=== PATIENT | female | born 1980 | race Caucasian/White ===

== ENCOUNTER 2020-09-28 10:30 | Outpatient (RCR) | payer BC, SELFPAY ==
--- NOTE | 2020-09-10 09:39 | PC.NURSE ---
Pt called TW a little after 9am in tears reporting that she is having technical difficulties and has been unable to access personal email in order to attend groups today. Pt expressed concern that she wouldn't be able to continue. TW assurred pt that this happens and informed her she could start on 09/13/20. Pt will work on computer issues over the weekend and agreed to a Sunday start.
--- NOTE | 2020-09-13 10:59 | PC.NURSE ---
Pt opened in treatment team.
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
--- NOTE | 2020-09-14 12:08 | PC.NURSE ---
Notified patient that she has a daily $20.00 co-pay per her insurance company and patient stated she will no longer be attending the program as a result. Gave patient information about medication assisted treatment for substance use and where she could receive assistance and pt stated angrily, in case you haven't heard I'm going to my PCP and getting Methadone for my pain! . Unable to recognize substance use issues. Did not want to further engage in further conversation. Patient recently came out of detox. Hx of using cocaine for the px 6 months daily and Heroin use daily for 2 years. PHP team is aware.
--- NOTE | 2020-09-15 10:56 | PC.NURSE ---
Pt called out today stating she has a migraine and will be in tomorrow
--- NOTE | 2020-09-15 13:25 | PC.NURSE ---
Patient stated to this junior technical writer yesterday that she would no longer be attending the program d/t the $20.00/day co-pay per insurance however told staff this morning that she would be attending and that she would be getting help from family regarding the co-pay. Patient however did not attend the program today as she told staff she had a migraine. Called patient this morning and left message for her to call me back to complete her admission assessment. Patient has not returned my phone call at present.
--- NOTE | 2020-09-16 09:57 | PC.NURSE ---
Per Staff Effie sent an email message calling out for the second time this morning d/t c/o migraine headache. Left message with patient to call me back yesterday to schedule a time to complete nursing assessment however patient has not called me back.
--- NOTE | 2020-09-16 15:58 | PC.NURSE ---
I called and left a message for pt. She called out today and yesterday with a migraine
--- NOTE | 2020-09-17 08:18 | PC.NURSE ---
I called and LM on pt's home phone, and on her cell phone. Asked her to pls call re: attendance and schedule.
--- NOTE | 2020-09-17 08:35 | PC.NURSE ---
Lm for Rosi Sorto at [facility] again, to refer to day tx
--- NOTE | 2020-09-17 11:52 | PC.ADMIT ---
Patient is a 40 year old female who self referred to the [facility] program on the advise of [facility] where patient was admitted for detox of heroin. Pt reports she went into detox on 08/31/20 and spent 6 days in treatment. She stated they wanted to refer her to a rehab facility afterwards however she declined d/t her dog being sick and stated she is afraid he is going to thus wants to be with him. Pt presents with depressed mood. She is alert and oriented x4. Denied SI. Reports anxiety and poor sleep. Stated she is here as, this is the next step after detox . Does not believe she has addiction issues and reports she was self medicating with heroin for pain issues as she lost her pain medication prescription. She stated she failed a drug test on January 12 and prescriber stopped the prescription. Pt did state that she talked with the nurse at her PCP's office and the plan is to start her on Methadone for pain. Pt reports that she is currently taking an old prescription of Morphine 15 mg tab daily that she found in her emergency pack for her neck pain. She reports she has 5 tabs left. She stated her doctor told her she can take it until she gets on the Methadone. Pt aware that we will be ordering drug screens while she is in the program and she was advised to take medications that are currently prescribed. Pt does not want referrals to medication assisted treatment for substance use at this time. In addition pt is overusing OTC Diphenhydramine 50 mg tabs stating she is taking 6 tabs at night for sleep. Advised patient to start taking the recommended dose. Medication education provided. Team is aware of above mentioned information including Taylor Stevenson APRN. Pt gave verbal permission to email her a copy of her safety plan and agrees to utilize if feeling unsafe.
[2020-09-17 12:21] VITALS: BMI 58.6
--- NOTE | 2020-09-17 14:11 | PC.NURSE ---
Attempted to call pt after a report that she became very angry in the third group because she was told she couldn't use marijuana while in the program. LM for pt to call back.
--- NOTE | 2020-09-21 15:36 | HO.PHPPROGNO ---
Subjective Subjective Date of Service: 09/22/20 Reason For Visit: F 33.2 F 14.20 F 11.20 Interim History: Effie reports she would like to continue Trazodone 50 mg HS as it helps with sleep. She discussed a.m. SE of hangover. Discussed dosage timing-hydration. Will meet with PCP today to discuss the possibility of Methadone. Will ask PCP to begin [facility] pain [place] referral. Medication Compliance: Yes Side effects from medications: Yes (a.m. sedation from Trazodone) Attending Groups: Yes Review of Systems Psychiatric: Reports anxiety and Reports depression Mental Status Exam Mental Status Exam Patient Orientation: Person, Place, Time and Situation Level of Consciousness: Awake, Appropriate and Alert Patient Behavior: Appropriate, Talkative and Cooperative Mood Description: Anxious Affect Description: Flat Patient Cognition Impaired: No Ability to Follow Directions: Excellent Speech Pattern: Clear, Appropriate and Spontaneous Speech Memory Description: Intact Hallucinations: None Delusions: Not Present Thought Process: Intact Thought Content: positive for Intact Depressive Symptoms: Increased Anxiety, Muscle Tension, Muscle Pain, Hopelessness, Unhappiness, Loss of Energy and Back Pain Judgement: Good Diagnostics Vital Signs (24Hr): Body Mass Index 58.6 Assessment & Plan Assessment & Plan (1) Major depressive disorder, recurrent severe without psychotic features: Status: Acute Code(s): F33.2 - Major depressive disorder, recurrent severe without psychotic features Assessment and Plan: -Continue Trazodone 50 mg HS -Pt finds etiology of depressive sx to be pain. She has asked PCP to consider Methadone, however PCP will refer pt to Suboxone Clinic. Pt to meet new PCP on 10/12/20. She is in process of referral to [facility] pain clinic (she is a former patient she reports) for alternative treatments. -At this time, she is not wanting further psychopharmacology treatment. Patient educated on: medication risk/benefits and therapeutic strategies Informed Consent: understands and further education needed Reason for contiued partial hosp. stay Substantial Risk for: inability to function and rapid decompensation Certification I certify that partial hospital treatment is medically necessary due to the symptoms and problems resulting from the patient's mental illness and the failure to treat the patient at the partial hospital level of care would likely result in the patient requiring inpatient psychiatric care which could not be prevented at a less intensive level of care. Greater than 50% of the session was spent on counseling and/or coordination of care Discharge Plan Discharge Attending provider: Arden Eddy Medications: Continued trazodone 50 mg tablet 50 mg PO BEDTIME Qty: 14 RF: 1
--- NOTE | 2020-09-27 16:43 | HO.PHPPROGNO ---
Subjective Subjective Date of Service: 09/28/20 Reason For Visit: F 33.2 F 14.20 F 11.20 Interim History: Continues to report pain. Will meet with Dr. Augustin to discuss Methadone Rx. Will also have PT and Physiatry. PCP has told pt she is not a Methadone candidate at [facility], but Suboxone potential working with Nelly GRAYSON with weekly contract, weekly appointments, pill counts, random POND. Discussed psychopharmacology with pt. Declines at this time, stating if she were to change her mind, she would return to her Wellbutrin/[place] combination as it was effective for 19 years. Encouraged pt to consider as it may assist with pain mgt as well via mood stabilization, antidepressant response. Medication Compliance: Yes Side effects from medications: No Attending Groups: Yes Review of Systems Constitutional: Reports body ache(s), Reports fatigue, Reports lethargy, Reports malaise and Reports weakness Musculoskeletal: Reports back pain, Reports myalgias, Reports arthralgias, Reports limited range of motion, Reports muscle cramps, Reports muscle weakness, Reports numbness, Reports stiffness and Reports tingling Reports numbness, Reports tingling and Reports weakness Psychiatric: Reports depression Endocrine: Reports fatigue Mental Status Exam Mental Status Exam Patient Orientation: Person, Place, Time and Situation Level of Consciousness: Awake, Appropriate and Alert Patient Behavior: Appropriate Mood Description: Withdrawn, Depressed and Apprehensive Affect Description: Withdrawn and Depressed Patient Cognition Impaired: No Ability to Follow Directions: Excellent Speech Pattern: Clear, Appropriate and Spontaneous Speech Memory Description: Intact Hallucinations: None Delusions: Not Present Thought Process: Intact and Goal Oriented Thought Content: positive for Intact Depressive Symptoms: Muscle Tension, Muscle Pain, Hopelessness, Unhappiness, Increased Fatigue, Loss of Energy and Back Pain Judgement: Good Diagnostics Vital Signs (24Hr): Body Mass Index 58.6 Assessment & Plan Assessment & Plan (1) Major depressive disorder, recurrent severe without psychotic features: Status: Acute Code(s): F33.2 - Major depressive disorder, recurrent severe without psychotic features Assessment and Plan: Effie is currently focused on pain mgt. We discussed returning to her previous regime as well a new trials. At this time she declines-she will consider a return to her previous regime of [place]/Wellbutrin, however wants to address pain initially. Certification I certify that partial hospital treatment is medically necessary due to the symptoms and problems resulting from the patient's mental illness and the failure to treat the patient at the partial hospital level of care would likely result in the patient requiring inpatient psychiatric care which could not be prevented at a less intensive level of care. Greater than 50% of the session was spent on counseling and/or coordination of care Discharge Plan Discharge Attending provider: Arden Eddy Medications: Continued trazodone 50 mg tablet 50 mg PO BEDTIME Qty: 14 RF: 1
--- NOTE | 2020-09-28 08:35 | PC.NURSE ---
At pt's request, I called and placed a referral for [facility] in [place]. [phone]. They said they will email me a checklist to send back, then give appts once filled out. I called and spoke to pt about this, and about her schedule. Pt said she will also look into psychology today because she might want a private practice therapist. I informed pt that it might be quite hard to get a private practice med provider is she chooses this route, as she said she is thinking about re-starting psych medications. She will discharge on 10/06, unless she decides to d/c earlier. She informed me of some new stressors, including her aunt having brain surgery and her mother getting increasingly forgetful. She said her mother has had a small aneurism, and she is worried her mother might also have a brain tumor.
== END 2020-09-28 23:55 | disposition left against medical advice (07) ==
LOC: HO.PHPA 10:30
PROVIDERS: Visit Provider Psychiatry & Neurology Psychiatry
DX: F33.2 Major depressive disorder, recurrent severe without psychotic features (principal); F14.20 Cocaine dependence, uncomplicated; F11.20 Opioid dependence, uncomplicated; Z79.899 Other long term (current) drug therapy
CPT/HCPCS: 90792; 90853; 99213

== ENCOUNTER 2021-08-19 08:15 | Outpatient (RCR) | payer BC, SELFPAY ==
[2021-08-15 12:57] VITALS: BMI 25.8
--- NOTE | 2021-08-15 13:43 | PC.ADMIT ---
Patient is a 41 year old female who was referred from [facility] as a step down from inpatient treatment. Patient was admitted from 07/26-08/03/21 after being assessed by [facility] d/t increase in depression and anxiety symptoms. Patient reported prior to hospitalization she attempted to overdose on heroin and also was thinking about using the exhaust from her car however patient stopped herself and went to crisis asking for help. Patient denied current SI. Patient has been struggling with substance use and reports history of neck pain with a history of 2 cervical spine surgeries. She reports being on prescription opiates for neck pain however was taken off the medication thus patient reports using heroin for her pain as a result. Patient reports she has been able to decrease heroin use however relapsed on Sunday. 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 Patient agreed to participate in online substance use groups in addition to PHP for more support in addition to agreeing to random drug screens. Patient also agreed to talk about the relapse in groups in order to get more support. Sent patient information via email on online substance use groups. Patient is alert and oriented x4. Calm and cooperative. At one point during the assessment patient stated she did not feel well and had to vomit. Patient left for a few minutes and came back. Stated she vomited however is not sure why. Patient denied any withdrawal sxs. Opened her window to get some fresh air and felt better afterwards. Patient denied SI however stated she has had some passive thoughts thinking things would be better if she was not here. Denied plan or intent. Asked who she could contact if she was feeling unsafe, she stated her whom she lives with or crisis. Medications reconciled with patient and patient's discharge paperwork from [facility]. Patient reports taking her medications as prescribed.
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
--- NOTE | 2021-08-18 10:21 | PC.NURSE ---
I called the client after she became upset in group and left. 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 She feels too emotionally uncomfortable to return to the group. She states that she will be safe and will sleep and be back tomorrow. I told her if she changed her mind she can join the second group at 1030 if not we will see her tomorrow.
--- NOTE | 2021-08-22 09:26 | PC.NURSE ---
I called the client this morning when she did attend community meeting. She states that she should withdraw from treatment because she relapsed on heroin Sunday. We talked about staying and working on this in the groups and if it is not enough
--- NOTE | 2021-08-22 09:39 | PC.NURSE ---
The client phoned again to state that she will not be continuing in PHP. She explains that she feels that she has alot of paperwork to figure out for work and just needs to focus on that. She completed and intake at [facility] and will have her first appointment with the prescriber tomorrow and is waiting for the therapy appointment .
== END 2021-08-22 14:10 | disposition home or self-care (01) ==
LOC: HO.PHPA 08:15
PROVIDERS: PCP Internal Medicine; Visit Provider Psychiatry & Neurology Psychiatry
DX: F33.2 Major depressive disorder, recurrent severe without psychotic features (principal); F11.20 Opioid dependence, uncomplicated; Z79.899 Other long term (current) drug therapy
CPT/HCPCS: 90791; 90853

== ENCOUNTER 2025-03-06 15:37 | Inpatient (IN) | payer BC, SELFPAY ==
--- NOTE | ~2025-03-06 | CT_ITS ---
CLINICAL HISTORY: trauma? --- Additional Notes or Special Instructions: new seizures CT head without contrast Comparison: None Findings: No intra-axial mass, midline shift, hydrocephalus, or acute hemorrhage. Empty sella is demonstrated, nonspecific. No significant atrophy-like change or white matter disease. There is no sinus or mastoid fluid. The orbits are within normal limits. There is no acute fracture. IMPRESSION: 1. No acute intracranial findings. This document has been electronically signed by: Edison Julian MD on 03/07/2025 01:24:30
--- NOTE | ~2025-03-06 | CT_ITS ---
CLINICAL HISTORY: elbow pain CT right elbow without contrast Comparison: None Findings: Tiny well corticated ossific focus along the coronoid process of the ulna series 3, image 145, felt to reflect osteophytic spurring or chronic injury. Otherwise no acute fracture identified. Diffuse subcutaneous fluid stranding along the antecubital fossa, measuring Hounsfield unit of 44 consistent with hemorrhage. IMPRESSION: 1. Subcutaneous hemorrhage along the antecubital fossa. 2. No acute fracture. This document has been electronically signed by: Edison Julian MD on 03/07/2025 06:45:09
--- NOTE | ~2025-03-06 | CT_ITS ---
CLINICAL HISTORY: elevated trops CT angiography chest with contrast. 3D Postprocessing. Comparison: None Findings: The heart size is normal. RV/LV ratio is normal. Unremarkable thoracic aorta and great vessels. No aneurysm. No pulmonary artery filling defects. The visualized thyroid and mediastinum are unremarkable. Atelectasis. No significant pleural effusion or pneumothorax. Hepatic steatosis noted. Multilevel Schmorl's nodes. IMPRESSION: No evidence of PE. This document has been electronically signed by: Edison Julian MD on 03/07/2025 01:22:37
--- NOTE | 2025-03-06 15:50 | ECG_ITS ---
Test Reason : overdose Blood Pressure : */* mmHG Vent. Rate : 109 BPM Atrial Rate : 109 BPM P-R Int : 176 ms QRS Dur : 122 ms QT Int : 364 ms P-R-T Axes : 72 -45 72 degrees QTcB Int : 490 ms Sinus tachycardia Left axis deviation Left ventricular hypertrophy with QRS widening ( R in aVL , [place] product ) Nonspecific ST abnormality Abnormal ECG No previous ECGs available Referred By: Grisel Rahman Electronically Signed By: LALITA WITT
[2025-03-06 15:52] VITALS: BP 116/72; BP 130/94; PULSE 109; PULSE 110; RESP 18; TEMP 37.9; O2SAT 97; BMI 24.0
--- NOTE | 2025-03-06 16:01 | ED_ITS ---
HPI - Overdose General Chief Complaint: Overdose Stated Complaint: od/narcan 12mg and seized given 10mg of midazolam Time Seen by Provider: 03/06/25 15:53 Source: patient, EMS, RN notes reviewed and police Mode of arrival: EMS Limitations: no limitations History of Present Illness ED Provider: Grisel Rahman PA-C HPI Narrative: This is a 45-year-old female, with a past medical history of major depressive disorder, and polysubstance abuse, who presents emergency department via EMS after an overdose. I spoke to a estate planning attorney, stating that patient had called 911 but was not making clear sentences, they were able to locate her by paying her phone. On arrival, patient was found to be lying down next to her car was seizing like activity with her dog. At that time she was given 4 mg of Narcan IN. EMS then responded and she was given she was given Narcan 12 mg, as well as 10 mg of midazolam as she began to seize afterwards. On arrival, patient is alert, she has no current complaints, she is feeling well other than a dry mouth. Patient reports that she used 100 bags of cocaine and 100 bags of heroin, and used intravenously in her left arm. She states that she typically smokes this, she states that this was a very 1st time that she ever used intravenously. Denies history of alcohol dependency, states that she drinks socially, no history of alcohol withdrawal seizures. She states that she has had an ongoing opioid use disorder, currently a patient at [facility], where she is on Brixadi, which she receives monthly. She states that she typically uses 2 bundles of heroin a day. She denies any chest pain or shortness of breath. No palpitations. Patient reports that she has been ?dealing with a lot of life stressors?. She states that she was upset with her , and she left the home, upset as they were in a slight and that is when she used. She had told nursing that she was feeling suicidal however states that this was not an intentional overdose. She then reports that she does have a history of an intentional drug overdose, reports that previously she overdosed on an [id number] sleeping medication which led her intubated in an ICU facility. complaint: intentional overdose Onset (ago): minute(s) Intent: unknown How Overdose Was Discovered: other (EMS) Context: Intentional Overdose: relationship problems Context: Accidental Overdose: wanted to get high Associated symptoms: depression Treatments Prior to Arrival: none Related Data Home Medications ?Medication ?Instructions ?Recorded ?Confirmed aripiprazole 5 mg tablet 5 mg PO DAILY 08/15/21 08/15/21 ascorbic acid (vitamin C) 500 mg 500 mg PO DAILY 08/15/21 08/15/21 capsule buprenorphine HCl 8 mg sublingual 8 mg sublingual TID 08/15/21 08/15/21 tablet cholecalciferol (vitamin D3) 50 50 mcg PO DAILY 08/15/21 08/15/21 mcg (2,000 unit) capsule (Vitamin D3) duloxetine 30 mg capsule,delayed 30 mg PO BID 08/15/21 08/15/21 release folic acid 1 mg tablet 1 mg PO DAILY 08/15/21 08/15/21 glucosamine sulfate 500 mg tablet 500 mg PO BID 08/15/21 08/15/21 (Glucosamine) hydroxyzine HCl 50 mg tablet 50 mg PO Q6H PRN Anxiety 08/15/21 08/15/21 melatonin 5 mg tablet 5 mg PO BEDTIME PRN Insomnia 08/15/21 08/15/21 multivitamin 1 tab PO DAILY 08/15/21 08/15/21 polyethylene glycol 3350 17 gram 17 g PO DAILY 08/15/21 08/15/21 oral powder packet (Miralax) omega 6-jti-qeh-fish oil 1,000 mg 1 cap PO DAILY 08/16/21 08/16/21 (120 mg-180 mg) capsule Previous Rx's ?Medication ?Instructions ?Recorded trazodone 50 mg tablet 50 mg PO BEDTIME #14 tabs 09/21/20 Allergies Allergy/AdvReac Type Severity Reaction Status Date / Time amoxicillin Allergy Rash Verified 03/06/25 15:53 ciprofloxacin [From Cipro] AdvReac Muscle Pain Verified 03/06/25 15:53 Review of Systems 2 Review of Systems: Yes all other systems are reviewed and are negative Constitutional: Constitutional: Reports as per [facility] Past Medical History Medical History Allergic rhinitis Cervical spondylosis without myelopathy Cervical vertebral fusion Chronic pain Herniated disc, cervical Major depressive disorder, recurrent severe without psychotic features Ovarian cyst Sciatica Social History Social History Household Members: Spouse Patient Tobacco Use Status: Never used Tobacco Smoked in Last 30 Days: No Use of substances other than those prescribed or required for medical reasons: Yes Substance Use Type: Crack/Cocaine, Heroin and Opiates Substance Use Frequency: Chronic Longstanding Last Used Substance: Just Prior to Admission Advance Directives: No Advance Directives Information Provided: No Do you have a plan to hurt others: No Plan Patient : No Physical Exam 2 Vital Signs: Vital Signs: Last Vital Signs Temp 97.6 F 03/07/25 01:31 Pulse 90 03/07/25 01:31 Resp 20 03/07/25 01:31 BP 102/69 03/07/25 01:31 Pulse Ox 97 03/07/25 01:31 O2 Del Method Room Air 03/07/25 01:31 BMI result Body Mass Index 24.0 Const: General: cooperative, comfortable and no acute distress O rientation/consciousness: patient oriented x3 Limitations: no limitations HEENT: Head: Yes normal to inspection, Yes normocephalic and Yes atraumatic Ears: hearing grossly normal bilaterally General nose exam: Normal external nose present Face and sinus: Yes normal facial exam Mouth: Normal oral and palatal mucosa present, oropharynx normal and moist mucous membranes Throat: Yes posterior oropharynx normal Eyes: General: appearance normal, both eyes and all related structures E yelids: Yes eyelids normal Conjunctivae: conjunctivae normal Sclerae: s clerae normal Pupils: Equal, round and reactive pupils present EOM: EOMs intact bilaterally Neck: Neck: Yes normal visual inspection, Yes full ROM and Yes no lymphadenopathy Lymphatic: no lymphadenopathy noted Chest: Chest palpation & inspection: normal inspection of the chest Resp: Effort & Inspection: normal respiratory effort and able to speak in complete sentences Auscultation: clear to auscultation bilaterally, no crackles, no rales, no rhonchi and no wheezes Cardio: Rate: regular rate Rhythm: regular rhythm Heart sounds: S1 normal heart sound present and S2 normal heart sound present GI: Inspection: Yes normal to inspection Skin: General skin exam: no rashes or lesions noted Trauma: no lacerations or abrasions Wounds: no wounds Neuro: General: patient oriented x3 and moves all extremities Cranial nerves: Yes Equal, round and reactive pupils present Extrem: General: Yes normal to inspection Right upper extremity: normal to inspection Left upper extremity: normal to inspection Right lower extremity: normal to inspection Left lower extremity: normal to inspection Course Course Course Narrative: I Marlee Mcghee PA-C have accepted care of the patient at sign out pending delta troponin, potential care team evaluation and final disposition Delta trop 297.7, will need a third, giving aspirin and versed, she is still tachy, will get repeat EKG with the third trop....getting repeat CPK..... To note, the care team already met with the patient, she has been cleared from their perspective, she has no SI or HI, she declines resources for detox 3rd trop 498.2, paging cardiology....2nd CPK [address] brain: Findings: No intra-axial mass, midline shift, hydrocephalus, or acute hemorrhage. Empty sella is demonstrated, nonspecific. No significant atrophy-like change or white matter disease. There is no sinus or mastoid fluid. The orbits are within normal limits. There is no acute fracture. IMPRESSION: 1. No acute intracranial findings. Consultations Consultation #1: paging cards.......Dr. Torres...... I sent him copies of the EKGs, I let him know that the troponin continues to elevate, he states there is nothing to do, I am repeating the CPK Time: 23:00 Consultation #2: Speaking with the hospitalist Dr. Correia, he wants a CT of the chest to rule out PE, and a repeat troponin, I relayed that we just got a repeat trop, I will schedule it for 2 hours Time: 23:27 Medications Administered Discontinued Medications Generic Name Dose Route Start Last Admin Trade Name Lennie PRN Reason Stop Dose Admin Aspirin 324 mg 03/06/25 20:02 03/06/25 20:19 Aspirin 81 Mg Tab.Chew PO 03/06/25 20:03 324 mg ONCE ONE Administration Sodium Chloride 1,000 mls @ 999 mls/hr 03/06/25 15:52 03/06/25 18:20 Ns IV 03/06/25 16:52 Infused .Q1H1M ONE Infusion Sodium Chloride 1,000 mls @ 999 mls/hr 03/06/25 18:19 03/06/25 19:43 Ns IV 03/06/25 19:19 Infused .Q1H1M ONE Infusion Sodium Chloride 1,000 mls @ 999 mls/hr 03/06/25 20:45 05/09/25 22:01 Ns IV 03/06/25 21:45 Infused .Q1H1M [place] Infusion Iohexol 65 ml 03/06/25 23:43 03/06/25 23:44 Iohexol 350 Mg/Ml 100 Ml Infus..Btl IV 03/06/25 23:44 65 ml ONCE ONE Administration Midazolam HCl 2 mg 03/06/25 15:58 03/06/25 17:18 Midazolam Hcl 2 Mg/2 Ml Vial IVPUSH 03/06/25 15:59 2 mg ONCE ONE Administration Midazolam HCl 4 mg 03/06/25 20:02 03/06/25 20:32 Midazolam Hcl 2 Mg/2 Ml Vial IVPUSH 03/06/25 20:03 4 mg ONCE ONE Administration Naloxone HCl 2 mg 03/06/25 17:30 03/06/25 17:35 Naloxone Hcl 2 Mg/2 Ml Syringe IVPUSH 03/06/25 17:31 2 mg ONCE ONE Administration Procedures Procedure Narrative Procedure Narrative: Ultrasound-guided IV 20 gauge 1.16 inch IV placed in left upper extremity, adequate blood return, flushes well secured with Tegaderm. Performed by Marlee Mcghee PA-C. Medical Decision Making Medical Decision Making MDM Narrative: This is a 45-year-old female who presents emergency department via EMS after overdose on heroin and cocaine. On arrival, patient tachycardic at 109 beats per minute, slight hypertensive at 130/94. She has a temperature of a 100.2?, she states that she is feeling well. On arrival she is alert and oriented x4. She has no chest pain or shortness of breath. I discussed this case with my attending physician, Dr. Jason. We will obtain labs, EKG, will medicate with IV fluids, and midazolam. She will also be seen by the care team in addiction Medicine. Differential diagnoses include intentional overdose, polysubstance abuse, rhabdomyolysis, cocaine induced ACS. We will continue to closely monitor pending overall workup 1800 - patient did have an episode where she started to nod off, given this, she was given 2 mg of Narcan IV, with good relief. labs returned, she has slight leukocytosis at 12.9, likely reactive, chemistry revealing slight hyperglycemia at 172, lactic acidosis at 3.6 - patient had a seizure today, no evidence of infectious source. CPK is 155. Elevated troponin at 89.3. Will at 1830. EKG shows no acute ischemia. Patient was seen by the care team, no safety concerns, stated that this was an accidental overdose. Sign-out given to my colleague RENUKA Oneill, pending repeat trop and disposition. Differential Diagnosis Differential Diagnoses: The differential diagnosis associated with the presentation includes See above Lab Data [facility] Lab Attestation statement: I reviewed the patient's lab results. See MDM and course 03/06/25 16:24 03/06/25 16:24 Labs: Lab Results 03/06/25 03/06/25 03/06/25 Range/Units 16:24 18:30 19:19 WBC 12.9 H (4.8-10.8) X10*3/uL RBC 4.97 (4.20-5.50) X10*6/uL Hgb 15.7 (12.0-16.0) g/dl Hct 44.6 (37.0-47.0) % MCV 89.7 (80.0-98.0) fL MCH 31.6 (27.0-33.0) pg MCHC 35.2 H (31.0-35.0) g/dl RDW 11.6 (11.0-16.0) % Plt Count 265 (160-400) X10*3/uL MPV 9.2 L (9.4-12.3) fL Immature Gran % (Auto) 0.7 H (0.0-0.4) % Neut % (Auto) 88.4 H (45-73) % Lymph % (Auto) 6.0 L (20-40) % [place] % (Auto) 4.6 (2-11) % Eos % (Auto) 0.1 (0-4) % Baso % (Auto) 0.2 (0-2) % Lymph # (Auto) 0.8 L (1.2-4.9) X10*3/uL [place] # (Auto) 0.6 (0.1-1.2) X10*3/uL Eos # (Auto) 0.0 (0.0-0.4) X10*3/uL Baso # (Auto) 0.0 (0.0-0.2) X10*3/uL Abs Immat Gran (auto) 0.09 H (0.00-0.03) X10*3/uL Absolute Neuts (auto) 11.4 H (2.0-8.3) x10*3/uL Absolute Nucleated RBC 0.000 (0.0-0.012) X10*3/uL Nucleated RBC % (auto) 0.0 (0.0-0.2) /100WBC Smear Tech's Comments VERIFIED Sodium 137 (135-145) mmol/L Potassium 3.6 (3.3-5.1) mmol/L Chloride 102 (96-108) mmol/L Carbon Dioxide 21 L (22-29) mmol/L Anion Gap 18 (12-20) BUN 12 (9-16) mg/dL Creatinine 1.21 (0.5-1.4) mg/dL Estim Creat Clear Calc 55.8 Estimated GFR 48 Random Glucose 172 H (60-115) mg/dL Lactic Acid 3.6 H* (0.5-2.0) mmol/L Lactic Acid F/U @ 2Hr 1.2 (0.5-2.0) mmol/L Calcium 10.3 H (8.4-10.2) mg/dL Magnesium 2.2 (1.6-2.6) mg/dL Total Bilirubin 0.6 (0.0-1.0) mg/dL Direct Bilirubin 0.2 (0.0-0.5) mg/dL AST 29 (5-31) U/L ALT 26 (0-31) U/L Alkaline Phosphatase 87 (39-117) U/L Total Creatine Kinase 155 H (26-140) U/L Troponin I High Sens 89.3 H* 297.7 H* D (<3.5-17.0) ng/L B-Natriuretic Peptide 16 (<100) pg/mL Total Protein 8.2 H (6.5-8.0) g/dL Albumin 4.9 (3.5-5.0) g/dL Beta HCG, Quant < 2 mIU/mL Urine Color Yellow Urine Appearance Clear Urine pH 5.5 (5.0-9.0) Ur Specific [place] <= 1.005 (1.005-1.025) Urine Protein Negative (Neg-Trace) mg/dL Urine Glucose (UA) Negative (Negative) mg/dL Urine Ketones Negative (Negative) mg/dL Urine Blood Negative (Negative) Urine Nitrite Negative (Negative) Ur Leukocyte Esterase Negative (Negative) Salicylates < 5.0 L (15-30) mg/dL Urine Opiates Screen POSITIVE H (Not Detect) Ur Buprenorphine Scrn Positive H (Not Detect) ng/mL Ur Oxycodone Screen Not Detected (Not Detect) ng/mL Urine Methadone Screen Not Detected (Not Detect) ng/mL Urine Fentanyl Screen POSITIVE H (Not Detect) Acetaminophen < 3 (<30) mcg/mL Ur Barbiturates Screen Not Detected (Not Detect) Ur Phencyclidine Scrn Not Detected (Not Detect) Ur Amphetamines Screen POSITIVE H (Not Detect) U Benzodiazepines Scrn POSITIVE H (Not Detect) Urine Cocaine Screen POSITIVE H (Not Detect) U Marijuana (THC) Screen Not Detected (Not Detect) Ethyl Alcohol < 10 mg/dL Influenza Type A (PCR) NEGATIVE (Negative) Influenza Type B (PCR) NEGATIVE (Negative) RSV RNA Qual (PCR) NEGATIVE (Negative) SARS-CoV-2 RNA (RT-PCR) NEGATIVE (Negative) 03/06/25 03/07/25 Range/Units 22:11 01:31 WBC (4.8-10.8) X10*3/uL RBC (4.20-5.50) X10*6/uL Hgb (12.0-16.0) g/dl Hct (37.0-47.0) % MCV (80.0-98.0) fL MCH (27.0-33.0) pg MCHC (31.0-35.0) g/dl RDW (11.0-16.0) % Plt Count (160-400) X10*3/uL MPV (9.4-12.3) fL Immature Gran % (Auto) (0.0-0.4) % Neut % (Auto) (45-73) % Lymph % (Auto) (20-40) % [place] % (Auto) (2-11) % Eos % (Auto) (0-4) % Baso % (Auto) (0-2) % Lymph # (Auto) (1.2-4.9) X10*3/uL [place] # (Auto) (0.1-1.2) X10*3/uL Eos # (Auto) (0.0-0.4) X10*3/uL Baso # (Auto) (0.0-0.2) X10*3/uL Abs Immat Gran (auto) (0.00-0.03) X10*3/uL Absolute Neuts (auto) (2.0-8.3) x10*3/uL Absolute Nucleated RBC (0.0-0.012) X10*3/uL Nucleated RBC % (auto) (0.0-0.2) /100WBC Smear Tech's Comments Sodium (135-145) mmol/L Potassium (3.3-5.1) mmol/L Chloride (96-108) mmol/L Carbon Dioxide (22-29) mmol/L Anion Gap (12-20) BUN (9-16) mg/dL Creatinine (0.5-1.4) mg/dL Estim Creat Clear Calc Estimated GFR Random Glucose (60-115) mg/dL Lactic Acid (0.5-2.0) mmol/L Lactic Acid F/U @ 2Hr (0.5-2.0) mmol/L Calcium (8.4-10.2) mg/dL Magnesium (1.6-2.6) mg/dL Total Bilirubin (0.0-1.0) mg/dL Direct Bilirubin (0.0-0.5) mg/dL AST (5-31) U/L ALT (0-31) U/L Alkaline Phosphatase (39-117) U/L Total Creatine Kinase 240 H (26-140) U/L Troponin I High Sens 498.2 H* D 326.7 H* (<3.5-17.0) ng/L B-Natriuretic Peptide (<100) pg/mL Total Protein (6.5-8.0) g/dL Albumin (3.5-5.0) g/dL Beta HCG, Quant mIU/mL Urine Color Urine Appearance Urine pH (5.0-9.0) Ur Specific [place] (1.005-1.025) Urine Protein (Neg-Trace) mg/dL Urine Glucose (UA) (Negative) mg/dL Urine Ketones (Negative) mg/dL Urine Blood (Negative) Urine Nitrite (Negative) Ur Leukocyte Esterase (Negative) Salicylates (15-30) mg/dL Urine Opiates Screen (Not Detect) Ur Buprenorphine Scrn (Not Detect) ng/mL Ur Oxycodone Screen (Not Detect) ng/mL Urine Methadone Screen (Not Detect) ng/mL Urine Fentanyl Screen (Not Detect) Acetaminophen (<30) mcg/mL Ur Barbiturates Screen (Not Detect) Ur Phencyclidine Scrn (Not Detect) Ur Amphetamines Screen (Not Detect) U Benzodiazepines Scrn (Not Detect) Urine Cocaine Screen (Not Detect) U Marijuana (THC) Screen (Not Detect) Ethyl Alcohol mg/dL Influenza Type A (PCR) (Negative) Influenza Type B (PCR) (Negative) RSV RNA Qual (PCR) (Negative) SARS-CoV-2 RNA (RT-PCR) (Negative) Independent Interpretation I performed an independent interpretation of an: EKG Interpretation: EKG sinus tachycardia at a ventricular rate of 109 beats per minute, WI interval 176, QT QTC 364/490. No STEMI. Reviewed EKG with my attending physician, Dr. Jason. Discharge Plan Discharge Clinical Impression: Polysubstance abuse, Opiate overdose, Elevated troponin, Cocaine abuse Patient Disposition: Admitted As Inpatient Print Language: Norwegian
[2025-03-06 16:37] LABS: Basophils Percent Auto 0.2 % (0-2); Eosinophils Percent Auto 0.1 % (0-4); Hemoglobin 15.7 g/dl (12.0-16.0); PLT CLUMP 1; SCAN SMEAR FLAG 1
[2025-03-06 16:39] LABS: Hematocrit 44.6 % (37.0-47.0); Imm Gran Abs Auto 0.09 X10*3/uL (0.00-0.03); Imm Gran Pct Auto 0.7 % (0.0-0.4); Lymphocytes Absolute Auto 0.8 X10*3/uL (1.2-4.9); MANUAL DIFF FLAG SCAN; Mean Corpuscular HGB Conc 35.2 g/dl (31.0-35.0); Mean Corpuscular Hemoglobin 31.6 pg (27.0-33.0); Mean Corpuscular Volume 89.7 fL (80.0-98.0); Mean Platelet Volume 9.2 fL (9.4-12.3); Monocytes Absolute Auto 0.6 X10*3/uL (0.1-1.2); Monocytes Percent Auto 4.6 % (2-11); Neutrophils Absolute Auto 11.4 x10*3/uL (2.0-8.3); Neutrophils Percent Auto 88.4 % (45-73); Red Blood Count 4.97 X10*6/uL (4.20-5.50); Red Cell Distribution Width 11.6 % (11.0-16.0)
[2025-03-06 16:53] LABS: Acetaminophen LAB < 3 mcg/mL (<30); Ethanol < 10 mg/dL; Salicylate < 5.0 mg/dL (15-30)
[2025-03-06 16:55] LABS: B Type Natriuretic Peptide 16 pg/mL (<100)
[2025-03-06 16:58] LABS: Alanine Aminotransferase 26 U/L (0-31); Albumin Level 4.9 g/dL (3.5-5.0); Anion Gap 18 (12-20); Aspartate Amino Transferase 29 U/L (5-31); Bilirubin Direct 0.2 mg/dL (0.0-0.5); Bilirubin Total 0.6 mg/dL (0.0-1.0); Blood Urea Nitrogen 12 mg/dL (9-16); Calcium 10.3 mg/dL (8.4-10.2); Carbon Dioxide 21 mmol/L (22-29); Chloride 102 mmol/L (96-108); Creatinine Clr Calc Pharmacy 55.8; Estimated Glomerular Filt Rate 48; Glucose Random 172 mg/dL (60-115); Magnesium 2.2 mg/dL (1.6-2.6); Potassium 3.6 mmol/L (3.3-5.1); Sodium 137 mmol/L (135-145); Total Protein 8.2 g/dL (6.5-8.0)
[2025-03-06 17:15] LABS: Influenza A PCR NEGATIVE (Negative); Influenza B PCR NEGATIVE (Negative); Resp Syncy Virus RNA Qual PCR NEGATIVE (Negative); SARS COV2 PCR INHOUSE NEGATIVE (Negative)
[2025-03-06] MEDS: Midazolam HCl 2 MG/2 ML VIAL IVPUSH (17:18)
[2025-03-06] MEDS: 0.9 % Sodium Chloride 1,000 ML 999 ML IV ×3 (17:19→21:00)
[2025-03-06 17:20] VITALS: BP 119/83; PULSE 118; RESP 18; O2SAT 96
[2025-03-06 17:20] LABS: Troponin-I High Sensitivity 89.3 ng/L (<3.5-17.0)
[2025-03-06 17:21] LABS: Lactic Acid 3.6 mmol/L (0.5-2.0)
[2025-03-06 17:22] LABS: Alkaline Phosphatase 87 U/L (39-117)
[2025-03-06] MEDS: Naloxone HCl 2 MG/2 ML SYRINGE IVPUSH (17:35)
[2025-03-06 17:47] LABS: Platelet Count 265 X10*3/uL (160-400); White Blood Count 12.9 X10*3/uL (4.8-10.8)
[2025-03-06 17:49] LABS: HCG Quantitative < 2 mIU/mL
[2025-03-06 18:00] VITALS: BP 135/78; PULSE 121; RESP 18; O2SAT 97
[2025-03-06 18:31] LABS: Reflex Lactate? Lactic Acid Added
[2025-03-06 18:41] LABS: Appearance Urine Clear; Color Urine Yellow; Glucose Urine UA Negative (Negative); Leukocyte Esterase Urine Negative (Negative); Nitrite Urine Negative (Negative); PH 5.5 (5.0-9.0); Specific Gravity - Urine <= 1.005 (1.005-1.025); Urine Blood Negative (Negative); Urine Ketones Negative (Negative); Urine Protein Negative (Neg-Trace)
[2025-03-06 18:50] LABS: Amphetamine Screen Urine POSITIVE (Not Detect); Barbiturates, Urine Not Detected (Not Detect); Benzodiazepines Screen Urine POSITIVE (Not Detect); Buprenorphine Scr Positive (Not Detect); Cannabinoid Screen Urine Not Detected (Not Detect); Cocaine Screen Urine POSITIVE (Not Detect); Fentanyl, urine POSITIVE (Not Detect); Methadone Screen, Urine Not Detected (Not Detect); Opiate Screen Urine POSITIVE (Not Detect); Oxycodone Screen Urine Not Detected (Not Detect); Phencyclidine Screen Urine Not Detected (Not Detect)
[2025-03-06 19:13] LABS: SLIDE REVIEW VERIFIED
[2025-03-06 19:52] LABS: ~Lactic Acid-LAB USE ONLY 1.2 mmol/L (0.5-2.0)
[2025-03-06 20:00] VITALS: BP 94/60; PULSE 117; RESP 18; O2SAT 95
[2025-03-06 20:01] LABS: Troponin-I High Sensitivity 297.7 ng/L (<3.5-17.0)
[2025-03-06] MEDS: Aspirin 81 MG TAB.CHEW 324 MG PO (20:19)
[2025-03-06] MEDS: Midazolam HCl 2 MG/2 ML VIAL 4 MG IVPUSH (20:32)
[2025-03-06 22:41] LABS: Troponin-I High Sensitivity 498.2 ng/L (<3.5-17.0)
--- NOTE | 2025-03-06 22:48 | ECG_ITS ---
Test Reason : INCREASING TROPONIN Blood Pressure : */* mmHG Vent. Rate : 102 BPM Atrial Rate : 102 BPM P-R Int : 160 ms QRS Dur : 82 ms QT Int : 372 ms P-R-T Axes : 65 -15 3 degrees QTcB Int : 484 ms Sinus tachycardia Otherwise normal ECG When compared with ECG of 06-Mar-2025 15:51, QRS duration has decreased ST no longer depressed in Anterior leads T wave inversion now evident in Inferior leads Referred By: Marlee Mcghee Electronically Signed By: LALITA WITT
[2025-03-06] MEDS: iohexoL 350 MG/ML 100 ML INFUS..BTL 65 ML IV (23:44)
[2025-03-07 01:31] VITALS: BP 102/69; PULSE 90; RESP 20; TEMP 36.4; O2SAT 97
[2025-03-07 02:04] LABS: Troponin-I High Sensitivity 326.7 ng/L (<3.5-17.0)
--- NOTE | 2025-03-07 04:29 | PM.IMHP ---
History of Present Illness Date of Service: 03/07/25 Chief Complaint: opiate overdose 45-year-old female with a past medical history of polysubstance abuse, chronic back pain presented to the hospital with a chief complaint of opiate overdose. Patient responsive. Patient at the time of my interview is alert and awake. Mentioned that she took heroin/fentanyl and cocaine today. Subsequently she fainted before that she called the police. Next per report police care of her a dose of Narcan. Called ambulance. Patient has started to seize. EMS team on arrival noted that patient is seizing give her a dose of Versed. Subsequently brought her to the hospital for further evaluation. Patient mentioned that today she used drugs IV. Usually she does not. Denies any chest pain or palpitations. Denies any shortness of breath. Reports mild pain in her elbow where she injected the drugs. Denies any GI or symptoms. Review of all other systems is negative except mentioned above ER course: Per ER team, patient on presentation was drowsy; given a dose of Narcan. Patient followed by noted to be sinus tachy. CT chest showed no evidence of PE CT head showed no acute intracranial process. Patient did not have any further episodes of seizures. CPK elevated to 155--240. Troponin elevated from 89-498 followed by 370. EKG was nonischemic. Cardiology Dr. Torres was notified, did not suggest heparin drip. [facility] Medical History Allergic rhinitis Cervical spondylosis without myelopathy Cervical vertebral fusion Chronic pain Herniated disc, cervical Major depressive disorder, recurrent severe without psychotic features Ovarian cyst Sciatica Social History Household Members: Spouse Alcohol intake: current Patient Tobacco Use Status: Never used Tobacco Smoked in Last 30 Days: Yes Use of substances other than those prescribed or required for medical reasons: No Substance Use Type: Amphetamines, Crack/Cocaine, Heroin and Methamphetamine Substance Use Frequency: Chronic Longstanding Last Used Substance: Just Prior to Admission Advance Directives: No Advance Directives Information Provided: No Do you have a plan to hurt others: No Plan Nutrition Risks: No Nutritional Risk Patient : No Meds Allergies Allergy/AdvReac Type Severity Reaction Status Date / Time amoxicillin Allergy Rash Verified 03/06/25 15:53 ciprofloxacin [From Cipro] AdvReac Muscle Pain Verified 03/06/25 15:53 Active Medications: Current Medications Acetaminophen (Acetaminophen 325 Mg Tablet) 650 mg PO Q6H PRN PRN Reason: Pain, Mild 1-3,fever,headache Calcium Carbonate (Calcium Carbonate 750 Mg Tab.Chew) 750 mg PO Q4H PRN PRN Reason: Heartburn Enoxaparin Sodium (Enoxaparin Sodium 40 Mg/0.4 Ml Syringe) 40 mg SUBCUT Q24H [place] Lactated Ringer's (Lr) 1,000 mls @ 100 mls/hr IVCONT .Q10H [place] Magnesium Hydroxide (Milk Of Magnesia 30 Ml Oral.Susp) 30 ml PO DAILY PRN PRN Reason: Constipation Melatonin (Melatonin 3 Mg Tablet) 6 mg PO BEDTIME PRN PRN Reason: Insomnia Senna (Sennosides 8.6 Mg Tablet) 17.2 mg PO BEDTIME [place] Sodium Chloride (0.9 % Sodium Chloride Flush 3 Ml Syringe) 3 ml IVFLUSH QSHIFT [place] Home Medications ?Medication ?Instructions ?Recorded ?Confirmed ?Last Taken ?Type aripiprazole 5 mg tablet 5 mg PO DAILY 08/15/21 08/15/21 08/15/21 07:45 History ascorbic acid (vitamin C) 500 mg 500 mg PO DAILY 08/15/21 08/15/21 08/15/21 07:45 History capsule buprenorphine HCl 8 mg sublingual 8 mg sublingual TID 08/15/21 08/15/21 08/15/21 07:45 History tablet cholecalciferol (vitamin D3) 50 50 mcg PO DAILY 08/15/21 08/15/21 08/15/21 07:45 History mcg (2,000 unit) capsule (Vitamin D3) duloxetine 30 mg capsule,delayed 30 mg PO BID 08/15/21 08/15/21 08/15/21 07:45 History release folic acid 1 mg tablet 1 mg PO DAILY 08/15/21 08/15/21 Unknown History glucosamine sulfate 500 mg tablet 500 mg PO BID 08/15/21 08/15/21 08/15/21 07:45 History (Glucosamine) hydroxyzine HCl 50 mg tablet 50 mg PO Q6H PRN Anxiety 08/15/21 08/15/21 08/14/21 19:00 History melatonin 5 mg tablet 5 mg PO BEDTIME PRN Insomnia 08/15/21 08/15/21 08/14/21 20:30 History multivitamin 1 tab PO DAILY 08/15/21 08/15/21 08/15/21 07:45 History polyethylene glycol 3350 17 gram 17 g PO DAILY 08/15/21 08/15/21 Unknown History oral powder packet (Miralax) omega 2-mtd-guh-fish oil 1,000 mg 1 cap PO DAILY 08/16/21 08/16/21 08/15/21 History (120 mg-180 mg) capsule Physical Exam Vital Signs and Narrative: Vital Signs: Last Vital Signs Temp 97.6 F 03/07/25 01:31 Pulse 90 03/07/25 01:31 Resp 20 03/07/25 01:31 BP 102/69 03/07/25 01:31 Pulse Ox 97 03/07/25 01:31 O2 Del Method Room Air 03/07/25 01:31 BMI result Body Mass Index 24.0 Gen: Appears be in no acute distress HEENT: NCAT, Moist mucosa. Pulmonary: Vesicular breath sounds, fair air entry CVS: Normal S1-S2 Abdomen: BS+, Soft, Nontender Extremities: Warm well perfused; right elbow cubital fossa noted to have small erythematous reason. Elbow ROM limited secondary to the pain. Neuro: Alert and awake. Results Labs 03/06/25 16:24 03/06/25 16:24 Labs: Laboratory Results - last 24 hr 03/06/25 03/06/25 03/06/25 16:24 18:30 19:19 MCV 89.7 MCH 31.6 MCHC 35.2 H RDW 11.6 Plt Count 265 MPV 9.2 L Immature Gran % (Auto) 0.7 H Neut % (Auto) 88.4 H Lymph % (Auto) 6.0 L [place] % (Auto) 4.6 Eos % (Auto) 0.1 Baso % (Auto) 0.2 Lymph # (Auto) 0.8 L [place] # (Auto) 0.6 Eos # (Auto) 0.0 Baso # (Auto) 0.0 Abs Immat Gran (auto) 0.09 H Absolute Neuts (auto) 11.4 H Absolute Nucleated RBC 0.000 Nucleated RBC % (auto) 0.0 Smear Tech's Comments VERIFIED Anion Gap 18 Estim Creat Clear Calc 55.8 Estimated GFR 48 Random Glucose 172 H Lactic Acid 3.6 H* Lactic Acid F/U @ 2Hr 1.2 Calcium 10.3 H Magnesium 2.2 Total Bilirubin 0.6 Direct Bilirubin 0.2 AST 29 ALT 26 Alkaline Phosphatase 87 Total Creatine Kinase 155 H B-Natriuretic Peptide 16 Total Protein 8.2 H Albumin 4.9 Beta HCG, Quant < 2 Urine Color Yellow Urine Appearance Clear Urine pH 5.5 Ur Specific [place] <= 1.005 Urine Protein Negative Urine Glucose (UA) Negative Urine Ketones Negative Urine Blood Negative Urine Nitrite Negative Ur Leukocyte Esterase Negative Salicylates < 5.0 L Urine Opiates Screen POSITIVE H Ur Buprenorphine Scrn Positive H Ur Oxycodone Screen Not Detected Urine Methadone Screen Not Detected Urine Fentanyl Screen POSITIVE H Acetaminophen < 3 Ur Barbiturates Screen Not Detected Ur Phencyclidine Scrn Not Detected Ur Amphetamines Screen POSITIVE H U Benzodiazepines Scrn POSITIVE H Urine Cocaine Screen POSITIVE H U Marijuana (THC) Screen Not Detected Ethyl Alcohol < 10 Influenza Type A (PCR) NEGATIVE Influenza Type B (PCR) NEGATIVE RSV RNA Qual (PCR) NEGATIVE SARS-CoV-2 RNA (RT-PCR) NEGATIVE 03/06/25 22:11 MCV MCH MCHC RDW Plt Count MPV Immature Gran % (Auto) Neut % (Auto) Lymph % (Auto) [place] % (Auto) Eos % (Auto) Baso % (Auto) Lymph # (Auto) [place] # (Auto) Eos # (Auto) Baso # (Auto) Abs Immat Gran (auto) Absolute Neuts (auto) Absolute Nucleated RBC Nucleated RBC % (auto) Smear Tech's Comments Anion Gap Estim Creat Clear Calc Estimated GFR Random Glucose Lactic Acid Lactic Acid F/U @ 2Hr Calcium Magnesium Total Bilirubin Direct Bilirubin AST ALT Alkaline Phosphatase Total Creatine Kinase 240 H B-Natriuretic Peptide Total Protein Albumin Beta HCG, Quant Urine Color Urine Appearance Urine pH Ur Specific [place] Urine Protein Urine Glucose (UA) Urine Ketones Urine Blood Urine Nitrite Ur Leukocyte Esterase Salicylates Urine Opiates Screen Ur Buprenorphine Scrn Ur Oxycodone Screen Urine Methadone Screen Urine Fentanyl Screen Acetaminophen Ur Barbiturates Screen Ur Phencyclidine Scrn Ur Amphetamines Screen U Benzodiazepines Scrn Urine Cocaine Screen U Marijuana (THC) Screen Ethyl Alcohol Influenza Type A (PCR) Influenza Type B (PCR) RSV RNA Qual (PCR) SARS-CoV-2 RNA (RT-PCR) Assessment and Plan (1) Opiate overdose: Qualifiers: Encounter type: initial encounter Injury intent: undetermined intent Qualified Code(s): T40.604A - Poisoning by unspecified narcotics, undetermined, initial encounter Status: Acute Plan 45-year-old female with a past medical history of polysubstance abuse, chronic back pain presented to the hospital with a chief complaint of opiate overdose. Admitted for following Right elbow pain: Patient noted to have small erythematous region on the cubital fossa of the right elbow. ROM of the right elbow limited secondary to the pain. Will obtain CT of the elbow Vancomycin IV Polysubstance abuse: Opiate overdose: Patient counseled to avoid illicit drug use Patient received Narcan at the scene as well as in the ER with improvement in the mental status. outreach and education social worker follow-up in a.m. Seizure episode: Patient reportedly had an episode of seizure at the scene. Received a dose of Versed by the EMS team. Did not have any further episodes. CT head showed no acute findings EEG Neurology consult Elevated troponins: Patient denies any chest pain. Likely demand in the setting of cocaine use Cardiology was notified-did not suggest heparin drip at this time Follow-up troponins trending down EKG nonischemic CT chest showed no evidence of PE Echocardiogram DVT prophylaxis: Lovenox Code status: Full code Quality Stroke Does the patient have a stroke diagnosis?: No VTE Prior VTE?: No VTE Risk Level:: Medical - moderate - high VTE Device Contraindication: Treatment Not Indicated VTE Drug Contraindication: N/A - Med Ordered
[2025-03-07] MEDS: Lactated Ringers 1,000 ML 100 ML IVCONT ×3 (04:54→23:43)
--- NOTE | 2025-03-07 05:13 | PC.NURSE ---
this RN resumed care of pt at 0300. pt a&ox4. vss and up to date. nsr on the groundwater monitoring technician. pt currently has no complaints aside from right elbow pain s/p accidental overdose. no abnormalities noted. provider notified/aware. pending CT to be completed at this time. IVF administered per provider order - LR infusing @ 100mls/hr. on RA w/o difficulty. no sob/wob noted. respirations even/unlabored. pending transport to bed assignment. plan of care ongoing. call kolb placed within reach.
[2025-03-07 06:13] VITALS: BMI 25.7
[2025-03-07 06:37] VITALS: BP 103/67; PULSE 84; RESP 16; TEMP 36.4; O2SAT 98
[2025-03-07 07:22] VITALS: BP 104/64; PULSE 73; RESP 18; TEMP 36.4; O2SAT 97
--- NOTE | 2025-03-07 07:23 | PC.NURSE ---
Patient admitted to s4 from ED this morning, arrived ~06:13. Patient oriented to call kolb, bed mechanics, and plan of care. A&Ox4. VSS. Seizure precautions and in-room camera were placed. Pt's only complaint was pain to the right elbow. RUE noted to have non-pitting edema. Inner elbow noted to be slightly red compared to the other though was normothermic to touch. Pt reported she usually smokes heroin multiple times daily but yesterday injected it. Pt did admit to injecting yesterday afternoon into the bilateral AC regions. Generalized tenderness to palpation to the right elbow though no foreign items noted on inspection/palpation. Ice packs were applied to RUE as per pt request and elevated on pillow as tolerated. Pt denies numbness/tingling. +radial pulses bilaterally. Imaging of elbow done in ED not yet read at time of assuming care. Vancomycin ordered, unable to initate as scheduled in DEC as trough ordered for 05:00 hour this morning was not yet drawn. Phlebotomy on the unit was notified and requested to draw. Bed alarm on and safety measures in place. Handoff report was given to to oncoming RN at 06:45. Please see admission assessments and tasks for full details.
[2025-03-07 07:25] LABS: MANUAL DIFF FLAG NO
[2025-03-07 07:34] LABS: Basophils Absolute Auto 0.1 X10*3/uL (0.0-0.2); Basophils Percent Auto 0.6 % (0-2); Eosinophils Absolute Auto 0.1 X10*3/uL (0.0-0.4); Hematocrit 35.7 % (37.0-47.0); Hemoglobin 12.4 g/dl (12.0-16.0); Imm Gran Abs Auto 0.03 X10*3/uL (0.00-0.03); Imm Gran Pct Auto 0.4 % (0.0-0.4); Lymphocytes Absolute Auto 1.9 X10*3/uL (1.2-4.9); Mean Corpuscular HGB Conc 34.7 g/dl (31.0-35.0); Mean Corpuscular Hemoglobin 31.8 pg (27.0-33.0); Mean Corpuscular Volume 91.5 fL (80.0-98.0); Mean Platelet Volume 9.4 fL (9.4-12.3); Monocytes Absolute Auto 0.6 X10*3/uL (0.1-1.2); Monocytes Percent Auto 7.7 % (2-11); Neutrophils Absolute Auto 5.6 x10*3/uL (2.0-8.3); Neutrophils Percent Auto 67.3 % (45-73); Platelet Count 211 X10*3/uL (160-400); Red Cell Distribution Width 11.9 % (11.0-16.0); White Blood Count 8.3 X10*3/uL (4.8-10.8)
[2025-03-07 07:54] LABS: Alanine Aminotransferase 20 U/L (0-31); Albumin Level 3.6 g/dL (3.5-5.0); Alkaline Phosphatase 62 U/L (39-117); Anion Gap 12 (12-20); Aspartate Amino Transferase 27 U/L (5-31); Bilirubin Total 0.6 mg/dL (0.0-1.0); Blood Urea Nitrogen 10 mg/dL (9-16); Calcium 8.7 mg/dL (8.4-10.2); Carbon Dioxide 22 mmol/L (22-29); Chloride 112 mmol/L (96-108); Cholesterol 142 mg/dL (<200); Creatinine Clr Calc Pharmacy 95.1; Estimated Glomerular Filt Rate > 60; Glucose Random 90 mg/dL (60-115); HDL Cholesterol 36 mg/dL (>40); LDL Cholesterol Calculated 95 mg/dL (<100); Potassium 3.8 mmol/L (3.3-5.1); Sodium 142 mmol/L (135-145); Total Protein 5.9 g/dL (6.5-8.0); Triglycerides 59 mg/dL (<150)
[2025-03-07] MEDS: 0.9 % Sodium Chloride Flush 3 ML SYRINGE IVFLUSH ×2 (08:31→14:27)
[2025-03-07] MEDS: Aspirin Enteric Coated 81 MG TABLET.DR PO (08:31)
[2025-03-07] MEDS: vancomycin HCL 1,500 MG in 0.9 % Sodium Chloride 500 ML 333.33 MG IV (08:36)
--- NOTE | 2025-03-07 08:49 | PHA.PROG ---
Admission Date/Time: March 07, 2025 04:25 Indication: SKIN & STRUCTURE Weight in k.5 kg Adjusted body weight in K.76 [place] body weight in K.6 Obesity Dosing Indication % IBW: 25.7 Serum Creatinine - Last 168 Hours 03/06/25 03/07/25 16:24 07:13 Creatinine 1.21 0.77 Estimated CrCl and GFR - Last 168 Hours 03/06/25 03/07/25 16:24 07:13 Estim Creat Clear Calc 55.8 95.1 Estimated GFR 48 > 60 Vancomycin Loading Dose: 1500 MG Current Vancomycin Dosing Regimen: 1000 MG Q12 Vancomycin Monitoring using AUC goal of 400 - 600 range with trough as surrogate marker: 485 AUC, 14.8 TROUGH Date and Time for next Vancomycin Level to be drawn: 03/08 @1800 Pharmacist Comments on Vancomycin Plan: Vancomycin dosing will take advantage of [employer] as a clinical decision support tool that uses Bayesian modeling to calculate individual patient's pharmacokinetic parameters and forecast the patient's drug concentration time course with the target goal AUC 24 range of 400 - 600 mg/L/hr.
--- NOTE | 2025-03-07 09:08 | PHA.MEDREC ---
Addendum entered by Nelli Byrnes RPh 03/07/25 10:05: reviewed by [facility]. Original Note: Pharmacy Consult ? Medication Reconciliation Pharmacy has completed the medication reconciliation. Spoke with patient to confirm. She takes no rx or otc medications.
--- NOTE | 2025-03-07 09:40 | HO.PM.IMPN ---
Subjective Subjective Date of Service: 03/07/25 Interval History: no complaints Physical Exam Vital Signs: Vital Signs: Last Vital Signs Temp 97.5 F 03/07/25 07:22 Pulse 73 03/07/25 07:22 Resp 18 03/07/25 07:22 BP 104/64 03/07/25 07:22 Pulse Ox 97 03/07/25 07:22 O2 Del Method Room Air 03/07/25 07:22 BMI result Body Mass Index 25.7 General: AO X 3, no acute distress Resp: CTA bilateral, no accessory muscles used CVS: S1,S2,RRR GI: soft, non tender, non distended Neuro: motor grossly intact, alert Psych: appropriate affect, appropriate insight left elbow hematoma Objective Data Active Medications Acetaminophen (Acetaminophen 325 Mg Tablet) 650 mg PO Q6H PRN PRN Reason: Pain, Mild 1-3,fever,headache Aspirin (Aspirin Enteric Coated 81 Mg Tablet.) 81 mg PO DAILY [facility] Last Admin: 03/07/25 08:31 Dose: 81 mg Documented By: KARRIE Calcium Carbonate (Calcium Carbonate 750 Mg Tab.Chew) 750 mg PO Q4H PRN PRN Reason: Heartburn Enoxaparin Sodium (Enoxaparin Sodium 40 Mg/0.4 Ml Syringe) 40 mg SUBCUT Q24H [facility] Last Admin: 03/07/25 08:38 Dose: Not Given Documented By: KARRIE Non-Admin Reason: Patient Refused Lactated Ringer's (Lr) 1,000 mls @ 100 mls/hr IVCONT .Q10H [facility] Last Admin: 03/07/25 04:54 Dose: 100 mls/hr Documented By: ENRIQUE Vancomycin HCl 1,000 mg/ (Sodium Chloride) 270 mls @ 270 mls/hr IV Q12H [facility] Magnesium Hydroxide (Milk Of Magnesia 30 Ml Oral.Susp) 30 ml PO DAILY PRN PRN Reason: Constipation Melatonin (Melatonin 3 Mg Tablet) 6 mg PO BEDTIME PRN PRN Reason: Insomnia Metoprolol Tartrate (Metoprolol Tartrate 12.5 Mg Halftab) 12.5 mg PO BID [facility]; Protocol Last Admin: 03/07/25 08:38 Dose: Not Given Documented By: KARRIE Non-Admin Reason: RN Held Med Senna (Sennosides 8.6 Mg Tablet) 17.2 mg PO BEDTIME [place] Sodium Chloride (0.9 % Sodium Chloride Flush 3 Ml Syringe) 3 ml IVFLUSH QSHIFT [place] Last Admin: 03/07/25 08:31 Dose: 3 ml Documented By: KARRIE Labs 03/07/25 07:13 03/07/25 07:13 Labs: Laboratory Results - last 24 hr 03/06/25 03/06/25 03/06/25 16:24 18:30 19:19 MCV 89.7 MCH 31.6 MCHC 35.2 H RDW 11.6 Plt Count 265 MPV 9.2 L Immature Gran % (Auto) 0.7 H Neut % (Auto) 88.4 H Lymph % (Auto) 6.0 L [place] % (Auto) 4.6 Eos % (Auto) 0.1 Baso % (Auto) 0.2 Lymph # (Auto) 0.8 L [place] # (Auto) 0.6 Eos # (Auto) 0.0 Baso # (Auto) 0.0 Abs Immat Gran (auto) 0.09 H Absolute Neuts (auto) 11.4 H Absolute Nucleated RBC 0.000 Nucleated RBC % (auto) 0.0 Smear Tech's Comments VERIFIED Anion Gap 18 Estim Creat Clear Calc 55.8 Estimated GFR 48 Random Glucose 172 H Lactic Acid 3.6 H* Lactic Acid F/U @ 2Hr 1.2 Calcium 10.3 H Magnesium 2.2 Total Bilirubin 0.6 Direct Bilirubin 0.2 AST 29 ALT 26 Alkaline Phosphatase 87 Total Creatine Kinase 155 H B-Natriuretic Peptide 16 Total Protein 8.2 H Albumin 4.9 Triglycerides Cholesterol LDL Cholesterol, Calc HDL Cholesterol Beta HCG, Quant < 2 Hold Red Top Urine Color Yellow Urine Appearance Clear Urine pH 5.5 Ur Specific [place] <= 1.005 Urine Protein Negative Urine Glucose (UA) Negative Urine Ketones Negative Urine Blood Negative Urine Nitrite Negative Ur Leukocyte Esterase Negative Salicylates < 5.0 L Urine Opiates Screen POSITIVE H Ur Buprenorphine Scrn Positive H Ur Oxycodone Screen Not Detected Urine Methadone Screen Not Detected Urine Fentanyl Screen POSITIVE H Acetaminophen < 3 Ur Barbiturates Screen Not Detected Ur Phencyclidine Scrn Not Detected Ur Amphetamines Screen POSITIVE H U Benzodiazepines Scrn POSITIVE H Urine Cocaine Screen POSITIVE H U Marijuana (THC) Screen Not Detected Ethyl Alcohol < 10 Influenza Type A (PCR) NEGATIVE Influenza Type B (PCR) NEGATIVE RSV RNA Qual (PCR) NEGATIVE SARS-CoV-2 RNA (RT-PCR) NEGATIVE 03/06/25 03/07/25 22:11 07:13 MCV 91.5 MCH 31.8 MCHC 34.7 RDW 11.9 Plt Count 211 MPV 9.4 Immature Gran % (Auto) 0.4 Neut % (Auto) 67.3 Lymph % (Auto) 23.0 [place] % (Auto) 7.7 Eos % (Auto) 1.0 Baso % (Auto) 0.6 Lymph # (Auto) 1.9 [place] # (Auto) 0.6 Eos # (Auto) 0.1 Baso # (Auto) 0.1 Abs Immat Gran (auto) 0.03 Absolute Neuts (auto) 5.6 Absolute Nucleated RBC 0.000 Nucleated RBC % (auto) 0.0 Smear Tech's Comments Anion Gap 12 Estim Creat Clear Calc 95.1 Estimated GFR > 60 Random Glucose 90 Lactic Acid Lactic Acid F/U @ 2Hr Calcium 8.7 D Magnesium Total Bilirubin 0.6 Direct Bilirubin AST 27 ALT 20 Alkaline Phosphatase 62 Total Creatine Kinase 240 H B-Natriuretic Peptide Total Protein 5.9 L Albumin 3.6 Triglycerides 59 Cholesterol 142 LDL Cholesterol, Calc 95 HDL Cholesterol 36 L Beta HCG, Quant Hold Red Top See Note Urine Color Urine Appearance Urine pH Ur Specific [place] Urine Protein Urine Glucose (UA) Urine Ketones Urine Blood Urine Nitrite Ur Leukocyte Esterase Salicylates Urine Opiates Screen Ur Buprenorphine Scrn Ur Oxycodone Screen Urine Methadone Screen Urine Fentanyl Screen Acetaminophen Ur Barbiturates Screen Ur Phencyclidine Scrn Ur Amphetamines Screen U Benzodiazepines Scrn Urine Cocaine Screen U Marijuana (THC) Screen Ethyl Alcohol Influenza Type A (PCR) Influenza Type B (PCR) RSV RNA Qual (PCR) SARS-CoV-2 RNA (RT-PCR) Assessment and Plan (1) Major depressive disorder, recurrent severe without psychotic features: Status: Acute Plan 45F PMH polysubstance dependence presented with AMS Acute toxic metabolic encephalopathy due to opiate overdose and possible seizure Now resolved Addiction team eval, neuro eval, EEG Elevated troponin Likely due to cocaine, follow up echo and Cardiology Right elbow pain Traumatic hematoma, no signs of infection discontinue vancomycin DVT prophylaxis Lovenox Full Code reason for continued hospitalization: Neuro eval and cardio eval Quality Stroke Does the patient have a stroke diagnosis?: No VTE Prior VTE?: No VTE Risk Level:: Medical - moderate - high VTE Device Contraindication: Treatment Not Indicated VTE Drug Contraindication: N/A - Med Ordered
--- NOTE | 2025-03-07 10:05 | MHC.CM.PN ---
Pt self-care, lives at home with others, has her own ride home at discharge. Education provided on HCP, declines at this time. PCP: Dr. Evert Feng
--- NOTE | 2025-03-07 11:20 | HO.ADDICTCON ---
History of Present Illness Date of Service: 03/07/2025 Chief Complaint: Opiate overdose Reason for Consult: opiate overdose Discussed with referring provider: Yes Sources of Information: patient interviewed and chart reviewed HPI Narrative: Patient is a 45 year old female with history of MDD and OUD Medically admitted following overdose, witnessed seizure and elevated troponins Patient seen in room 461. She is awake, alert, engaged in interview, however, slightly guarded She reports history opioid use since 2011 when she states she was being prescribed medications for pain which were abrubtly discontinued in 2019. Since 2019, she started using heroin. Currently using approx 3 bundles of heroin/fentanyl daily via inhalation route Day of overdose, she reports purchasing half a pack (50 bags) and injecting all at once along with cocaine T/w inquired if this was an attempt to end her life, and she denies this stating, I just wanted to fall asleep and not think about my problems anymore She reports being prescribed Bixadi via [facility] [employer] [facility] with last injection being administered on , 03/04. Dose is 128mg Discussed ongoing substance use, and patient reports use is to escape from her problems. Denies withdrawal sx. Denies any history of methadone treatment Reports one ATS admission, some IOP/PHP admissions, unclear when Discussed sx, she states she has been diagnosed with depression for many years No therapist, however provider at [facility] prescribes trazodone and Cymbalta She reports suicide attempt last year with sleeping pills which resulted in patient admitted to ICU and intubated Then admitted to [facility] unit. 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 Psychotherapy age 12-ended 2015 Trials: [place]/Wellbutrin x 19 years, Seroquel-too sedating. Hx of OD x 20 of OTC meds, the most recent being February 2020. Reports sx of [place] since ~ age 8 Review of Systems Constitutional: Reports as per HPI Gastrointestinal: Denies loose stools and Denies nausea Musculoskeletal: Reports other (right elbow pain d/t fall following overdose ) Psychiatric: Reports anxiety, Reports depression, Reports hopelessness, Reports irritability, Reports anhedonia and Denies suicidal ideation Diagnostics Vital Signs (24Hr): Vital Signs - 24 hr 03/06/25 15:52 03/06/25 17:20 03/06/25 18:00 Temperature 100.2 F Pulse Rate 109 H 118 H 121 H Respiratory Rate 18 18 18 Blood Pressure 130/94 H 119/83 135/78 Pulse Oximetry 97 96 97 Oxygen Delivery Method Room Air Room Air Room Air 03/06/25 20:00 03/07/25 01:31 03/07/25 06:37 Temperature 97.6 F 97.5 F Pulse Rate 117 H 90 84 Respiratory Rate 18 20 16 Blood Pressure 94/60 102/69 103/67 Pulse Oximetry 95 97 98 Oxygen Delivery Method Room Air Room Air Room Air 03/07/25 07:22 Temperature 97.5 F Pulse Rate 73 Respiratory Rate 18 Blood Pressure 104/64 Pulse Oximetry 97 Oxygen Delivery Method Room Air BMI result Body Mass Index 25.7 Labs 03/07/25 07:13 03/07/25 07:13 Labs: Laboratory Results - last 48 hr 03/06/25 03/06/25 03/06/25 16:24 18:30 19:19 WBC 12.9 H RBC 4.97 Hgb 15.7 Hct 44.6 MCV 89.7 MCH 31.6 MCHC 35.2 H RDW 11.6 Plt Count 265 MPV 9.2 L Immature Gran % (Auto) 0.7 H Neut % (Auto) 88.4 H Lymph % (Auto) 6.0 L [place] % (Auto) 4.6 Eos % (Auto) 0.1 Baso % (Auto) 0.2 Lymph # (Auto) 0.8 L [place] # (Auto) 0.6 Eos # (Auto) 0.0 Baso # (Auto) 0.0 Abs Immat Gran (auto) 0.09 H Absolute Neuts (auto) 11.4 H Absolute Nucleated RBC 0.000 Nucleated RBC % (auto) 0.0 Smear Tech's Comments VERIFIED Sodium 137 Potassium 3.6 Chloride 102 Carbon Dioxide 21 L Anion Gap 18 BUN 12 Creatinine 1.21 Estim Creat Clear Calc 55.8 Estimated GFR 48 Random Glucose 172 H Lactic Acid 3.6 H* Lactic Acid F/U @ 2Hr 1.2 Calcium 10.3 H Magnesium 2.2 Total Bilirubin 0.6 Direct Bilirubin 0.2 AST 29 ALT 26 Alkaline Phosphatase 87 Total Creatine Kinase 155 H Troponin I High Sens 89.3 H* 297.7 H* D B-Natriuretic Peptide 16 Total Protein 8.2 H Albumin 4.9 Triglycerides Cholesterol LDL Cholesterol, Calc HDL Cholesterol Beta HCG, Quant < 2 Hold Red Top Urine Color Yellow Urine Appearance Clear Urine pH 5.5 Ur Specific [place] <= 1.005 Urine Protein Negative Urine Glucose (UA) Negative Urine Ketones Negative Urine Blood Negative Urine Nitrite Negative Ur Leukocyte Esterase Negative Salicylates < 5.0 L Urine Opiates Screen POSITIVE H Ur Buprenorphine Scrn Positive H Ur Oxycodone Screen Not Detected Urine Methadone Screen Not Detected Urine Fentanyl Screen POSITIVE H Acetaminophen < 3 Ur Barbiturates Screen Not Detected Ur Phencyclidine Scrn Not Detected Ur Amphetamines Screen POSITIVE H U Benzodiazepines Scrn POSITIVE H Urine Cocaine Screen POSITIVE H U Marijuana (THC) Screen Not Detected Ethyl Alcohol < 10 Influenza Type A (PCR) NEGATIVE Influenza Type B (PCR) NEGATIVE RSV RNA Qual (PCR) NEGATIVE SARS-CoV-2 RNA (RT-PCR) NEGATIVE 03/06/25 03/07/25 03/07/25 22:11 01:31 07:13 WBC 8.3 RBC 3.90 L D Hgb 12.4 D Hct 35.7 L MCV 91.5 MCH 31.8 MCHC 34.7 RDW 11.9 Plt Count 211 MPV 9.4 Immature Gran % (Auto) 0.4 Neut % (Auto) 67.3 Lymph % (Auto) 23.0 [place] % (Auto) 7.7 Eos % (Auto) 1.0 Baso % (Auto) 0.6 Lymph # (Auto) 1.9 [place] # (Auto) 0.6 Eos # (Auto) 0.1 Baso # (Auto) 0.1 Abs Immat Gran (auto) 0.03 Absolute Neuts (auto) 5.6 Absolute Nucleated RBC 0.000 Nucleated RBC % (auto) 0.0 Smear Tech's Comments Sodium 142 Potassium 3.8 Chloride 112 H Carbon Dioxide 22 Anion Gap 12 BUN 10 Creatinine 0.77 Estim Creat Clear Calc 95.1 Estimated GFR > 60 Random Glucose 90 Lactic Acid Lactic Acid F/U @ 2Hr Calcium 8.7 D Magnesium Total Bilirubin 0.6 Direct Bilirubin AST 27 ALT 20 Alkaline Phosphatase 62 Total Creatine Kinase 240 H Troponin I High Sens 498.2 H* D 326.7 H* B-Natriuretic Peptide Total Protein 5.9 L Albumin 3.6 Triglycerides 59 Cholesterol 142 LDL Cholesterol, Calc 95 HDL Cholesterol 36 L Beta HCG, Quant Hold Red Top See Note Urine Color Urine Appearance Urine pH Ur Specific [place] Urine Protein Urine Glucose (UA) Urine Ketones Urine Blood Urine Nitrite Ur Leukocyte Esterase Salicylates Urine Opiates Screen Ur Buprenorphine Scrn Ur Oxycodone Screen Urine Methadone Screen Urine Fentanyl Screen Acetaminophen Ur Barbiturates Screen Ur Phencyclidine Scrn Ur Amphetamines Screen U Benzodiazepines Scrn Urine Cocaine Screen U Marijuana (THC) Screen Ethyl Alcohol Influenza Type A (PCR) Influenza Type B (PCR) RSV RNA Qual (PCR) SARS-CoV-2 RNA (RT-PCR) Mental Status Exam Mental Status Exam Patient Appearance: Appropriate Patient Orientation: Person, Place, Time and Situation Level of Consciousness: Awake and Appropriate Patient Behavior: Guarded and Cooperative Mood Description: Anxious Affect Description: Flat Speech Pattern: Clear Hallucinations: None Thought Process: Intact Thought Content: positive for Intact Judgement: Fair Medications Medications Current Medications Acetaminophen (Acetaminophen 325 Mg Tablet) 650 mg PO Q6H PRN PRN Reason: Pain, Mild 1-3,fever,headache Aspirin (Aspirin Enteric Coated 81 Mg Tablet.Dr) 81 mg PO DAILY [facility] Last Admin: 03/07/25 08:31 Dose: 81 mg Calcium Carbonate (Calcium Carbonate 750 Mg Tab.Chew) 750 mg PO Q4H PRN PRN Reason: Heartburn Enoxaparin Sodium (Enoxaparin Sodium 40 Mg/0.4 Ml Syringe) 40 mg SUBCUT Q24H [facility] Last Admin: 03/07/25 08:38 Dose: Not Given Lactated Ringer's (Lr) 1,000 mls @ 100 mls/hr IVCONT .Q10H [facility] Last Admin: 03/07/25 04:54 Dose: 100 mls/hr Magnesium Hydroxide (Milk Of Magnesia 30 Ml Oral.Susp) 30 ml PO DAILY PRN PRN Reason: Constipation Melatonin (Melatonin 3 Mg Tablet) 6 mg PO BEDTIME PRN PRN Reason: Insomnia Metoprolol Tartrate (Metoprolol Tartrate 12.5 Mg Halftab) 12.5 mg PO BID [facility]; Protocol Last Admin: 03/07/25 08:38 Dose: Not Given Senna (Sennosides 8.6 Mg Tablet) 17.2 mg PO BEDTIME [facility] Sodium Chloride (0.9 % Sodium Chloride Flush 3 Ml Syringe) 3 ml IVFLUSH QSHIFT [facility] Last Admin: 03/07/25 08:31 Dose: 3 ml Allergies Allergies Allergy/AdvReac Type Severity Reaction Status Date / Time amoxicillin Allergy Rash Verified 03/06/25 15:53 ciprofloxacin [From Cipro] AdvReac Muscle Pain Verified 03/06/25 15:53 Assessment & Plan Assessment & Plan (1) Opioid use disorder, severe, dependence: Status: Acute Code(s): F11.20 - Opioid dependence, uncomplicated Assessment and Plan: overdose requiring narcan no withdrawal sx--patient reports recently receiving Brixadi earlier this week reporting anxiety-lorazepam 0.5mg Q8H PRN max 3 doses ( do not advise renewing this order) notified attending provider regarding concern that recent overdose may have been intentional, will consult with CARE team accepted information for IOP, declined any other follow up or intervention declined take home narcan Total time managing care of this patient today __40__ minutes. PMF Past Medical History Medical History Allergic rhinitis Cervical spondylosis without myelopathy Cervical vertebral fusion Chronic pain Herniated disc, cervical Major depressive disorder, recurrent severe without psychotic features Ovarian cyst Sciatica Family History Family History (Updated 03/07/25 @ 11:33 by Fer Torres MD) Father CAD (coronary artery disease) Social History Social History Household Members: Spouse Household Members Other:: Lives w/ , Mother lives in upstairs apartment Housing: Apartment Do you presently have visiting nurse or other home services: No Alcohol intake: current Patient Tobacco Use Status: Never used Tobacco Smoked in Last 30 Days: No Use of substances other than those prescribed or required for medical reasons: Yes Substance Use Type: Heroin Substance Use Frequency: Daily Last Used Substance: Hours (ago) Last Used Substance Other:: 2:30pm yesterday afternoon Currently Displaying Signs/Symptoms of Drug Intoxication Withdrawal: Yes Have you been hit, kicked, punched, or otherwise hurt by someone within the past year? If so, by whom?: No Do you feel safe in your current relationship?: Yes Is there a partner from a previous relationship who is making you feel unsafe now?: No Are you made to feel afraid or neglected: No [facility] Healthcare Practices: declined Advance Directives: No Advance Directives Information Provided: No Do you have a plan to hurt others: No Plan Recently lost weight without trying: No Eating poorly because of decreased appetite: No Nutrition Risks: On aspiration precautions Patient : No : No Poor oral hygiene: No service: No
[2025-03-07 11:26] VITALS: BP 115/68; PULSE 88; RESP 18; TEMP 36.4; O2SAT 97
--- NOTE | 2025-03-07 11:31 | PM.CNCAR ---
History of Present Illness History of Present Illness Date of Service: 03/07/25 Chief complaint: Opiate overdose Narrative: This is a cardiology consultation regarding elevated troponins. Patient does not have any prior cardiac history. No known coronary disease myocardial infarction or cardiomyopathy or any other cardiac issues. She also denies any complaints like angina or shortness of breath or in fact anything cardiac related. Admitted mainly for substance abuse issues. Documentation reviewed and discussed with patient. It seems that she used heroin/fentanyl/cocaine. Then she fainted but before that she called the police. Then apparently [place] arrived and gave her a dose of Narcan. Then ambulance arrived and then patient started to seize. Then it seems she got some Versed. Then she was brought to the emergency room. Here, troponins were checked which were elevated. However, patient has no cardiac symptoms. She was admitted for further care. Review of Systems Review of Systems: Yes all other systems are reviewed and are negative Constitutional: Constitutional: Reports as per HPI and Reports no additional constitutional complaints Eyes: Eyes: Reports as per HPI and Denies no additional eye complaints ENT: Denies system reviewed and no additional complaints, except as documented and Reports as per HPI Cardiovascular: Cardiovascular: Reports as per HPI, Reports no additional cardiovascular complaints, Denies acrocyanosis, Denies cool extremities, Denies chest pain, Denies leg edema, Denies lightheadedness, Denies palpitations and Denies dyspnea Respiratory: Respiratory: Reports as per HPI, Denies no additional respiratory complaints and Denies dyspnea Gastrointestinal: Gastrointestinal: Reports as per HPI and Denies no additional gastrointestinal complaints Genitourinary: Genitourinary: Reports as per HPI Musculoskeletal: Musculoskeletal: Reports no additional musculoskeletal complaints and Reports as per HPI Integumentary/Breasts: Skin/Breast: Reports system reviewed and no additional complaints, except as docu Neurologic: Reports system reviewed and no additional complaints, except as documented and Reports as per HPI Psychiatric: Psychiatric: Reports no additional psychiatric complaints and Reports as per HPI Endocrine: Endocrine: Reports no additional endocrine complaints, Reports as per HPI and Denies palpitations Hematologic/Lymphatic: Hematologic/Lymphatic: Reports no additional hematologic/lymphatic complaints and Reports as per HPI Allergic/Immunologic: Allergic/Immunologic: Reports no additional allergic/immunologic complaints and Reports as per HPI [facility] Past Medical History Medical History Allergic rhinitis Cervical spondylosis without myelopathy Cervical vertebral fusion Chronic pain Herniated disc, cervical Major depressive disorder, recurrent severe without psychotic features Ovarian cyst Sciatica Family History Family History (Updated 03/07/25 @ 11:33 by Fer Torres MD) Father CAD (coronary artery disease) Social History Social History Household Members: Spouse Household Members Other:: Lives w/ , Mother lives in upstairs apartment Housing: Apartment Do you presently have visiting nurse or other home services: No Alcohol intake: current Patient Tobacco Use Status: Never used Tobacco Smoked in Last 30 Days: No Use of substances other than those prescribed or required for medical reasons: Yes Substance Use Type: Heroin Substance Use Frequency: Daily Last Used Substance: Hours (ago) Last Used Substance Other:: 2:30pm yesterday afternoon Currently Displaying Signs/Symptoms of Drug Intoxication Withdrawal: Yes Have you been hit, kicked, punched, or otherwise hurt by someone within the past year? If so, by whom?: No Do you feel safe in your current relationship?: Yes Is there a partner from a previous relationship who is making you feel unsafe now?: No Are you made to feel afraid or neglected: No [facility] Practices: declined Advance Directives: No Advance Directives Information Provided: No Do you have a plan to hurt others: No Plan Recently lost weight without trying: No Eating poorly because of decreased appetite: No Nutrition Risks: On aspiration precautions Patient : No : No Poor oral hygiene: No service: No Meds Allergies Allergy/AdvReac Type Severity Reaction Status Date / Time amoxicillin Allergy Rash Verified 03/06/25 15:53 ciprofloxacin [From Cipro] AdvReac Muscle Pain Verified 03/06/25 15:53 Active Medications: Current Medications Acetaminophen (Acetaminophen 325 Mg Tablet) 650 mg PO Q6H PRN PRN Reason: Pain, Mild 1-3,fever,headache Aspirin (Aspirin Enteric Coated 81 Mg Tablet.Dr) 81 mg PO DAILY [facility] Last Admin: 03/07/25 08:31 Dose: 81 mg Calcium Carbonate (Calcium Carbonate 750 Mg Tab.Chew) 750 mg PO Q4H PRN PRN Reason: Heartburn Enoxaparin Sodium (Enoxaparin Sodium 40 Mg/0.4 Ml Syringe) 40 mg SUBCUT Q24H [facility] Last Admin: 03/07/25 08:38 Dose: Not Given Lactated Ringer's (Lr) 1,000 mls @ 100 mls/hr IVCONT .Q10H [facility] Last Admin: 03/07/25 04:54 Dose: 100 mls/hr Lorazepam (Lorazepam 0.5 Mg Tablet) 0.5 mg PO Q8H PRN PRN Reason: Anxiety Magnesium Hydroxide (Milk Of Magnesia 30 Ml Oral.Susp) 30 ml PO DAILY PRN PRN Reason: Constipation Melatonin (Melatonin 3 Mg Tablet) 6 mg PO BEDTIME PRN PRN Reason: Insomnia Metoprolol Tartrate (Metoprolol Tartrate 12.5 Mg Halftab) 12.5 mg PO BID [facility]; Protocol Last Admin: 03/07/25 08:38 Dose: Not Given Senna (Sennosides 8.6 Mg Tablet) 17.2 mg PO BEDTIME [facility] Sodium Chloride (0.9 % Sodium Chloride Flush 3 Ml Syringe) 3 ml IVFLUSH QSHIFT [facility] Last Admin: 03/07/25 08:31 Dose: 3 ml Home Medications ?Medication ?Instructions ?Recorded ?Confirmed ?Last Taken ?Type No Known Home Meds 03/07/25 03/07/25 Unknown History Physical Exam Vital Signs: Vital Signs: Last Vital Signs Temp 97.5 F 03/07/25 07:22 Pulse 73 03/07/25 07:22 Resp 18 03/07/25 07:22 BP 104/64 03/07/25 07:22 Pulse Ox 97 03/07/25 07:22 O2 Del Method Room Air 03/07/25 07:22 BMI result Body Mass Index 25.7 Const: General: comfortable and no acute distress Orientation/consciousness: patient oriented x3 HEENT: Other: Unremarkable Head: Yes normal to inspection Neck: Neck: Yes normal visual inspection Chest: Chest palpation & inspection: normal inspection of the chest Resp: Auscultation: clear to auscultation bilaterally Cardio: Palpation: normal PMI Heart sounds: S1 normal heart sound present, S2 normal heart sound present, no gallops, no murmurs and no rubs GI: Palpation (GI): Soft to palpation Back/Spine/Pelvis: Other: unremarkable Skin: General skin exam: no rashes or lesions noted Neuro: General: patient oriented x3 Extrem: General: Yes normal to inspection Psych: Mental Status: mental status grossly normal Objective Labs and Meds 03/07/25 07:13 03/07/25 07:13 Lab results: Laboratory Results - last 24 hr 03/06/25 03/06/25 03/06/25 16:24 18:30 19:19 WBC 12.9 H RBC 4.97 Hgb 15.7 Hct 44.6 MCV 89.7 MCH 31.6 MCHC 35.2 H RDW 11.6 Plt Count 265 MPV 9.2 L Immature Gran % (Auto) 0.7 H Neut % (Auto) 88.4 H Lymph % (Auto) 6.0 L [place] % (Auto) 4.6 Eos % (Auto) 0.1 Baso % (Auto) 0.2 Lymph # (Auto) 0.8 L [place] # (Auto) 0.6 Eos # (Auto) 0.0 Baso # (Auto) 0.0 Abs Immat Gran (auto) 0.09 H Absolute Neuts (auto) 11.4 H Absolute Nucleated RBC 0.000 Nucleated RBC % (auto) 0.0 Smear Tech's Comments VERIFIED Sodium 137 Potassium 3.6 Chloride 102 Carbon Dioxide 21 L Anion Gap 18 BUN 12 Creatinine 1.21 Estim Creat Clear Calc 55.8 Estimated GFR 48 Random Glucose 172 H Lactic Acid 3.6 H* Lactic Acid F/U @ 2Hr 1.2 Calcium 10.3 H Magnesium 2.2 Total Bilirubin 0.6 Direct Bilirubin 0.2 AST 29 ALT 26 Alkaline Phosphatase 87 Total Creatine Kinase 155 H Troponin I High Sens 89.3 H* 297.7 H* D B-Natriuretic Peptide 16 Total Protein 8.2 H Albumin 4.9 Triglycerides Cholesterol LDL Cholesterol, Calc HDL Cholesterol Beta HCG, Quant < 2 Hold Red Top Urine Color Yellow Urine Appearance Clear Urine pH 5.5 Ur Specific [place] <= 1.005 Urine Protein Negative Urine Glucose (UA) Negative Urine Ketones Negative Urine Blood Negative Urine Nitrite Negative Ur Leukocyte Esterase Negative Salicylates < 5.0 L Urine Opiates Screen POSITIVE H Ur Buprenorphine Scrn Positive H Ur Oxycodone Screen Not Detected Urine Methadone Screen Not Detected Urine Fentanyl Screen POSITIVE H Acetaminophen < 3 Ur Barbiturates Screen Not Detected Ur Phencyclidine Scrn Not Detected Ur Amphetamines Screen POSITIVE H U Benzodiazepines Scrn POSITIVE H Urine Cocaine Screen POSITIVE H U Marijuana (THC) Screen Not Detected Ethyl Alcohol < 10 Influenza Type A (PCR) NEGATIVE Influenza Type B (PCR) NEGATIVE RSV RNA Qual (PCR) NEGATIVE SARS-CoV-2 RNA (RT-PCR) NEGATIVE 03/06/25 03/07/25 03/07/25 22:11 01:31 07:13 WBC 8.3 RBC 3.90 L D Hgb 12.4 D Hct 35.7 L MCV 91.5 MCH 31.8 MCHC 34.7 RDW 11.9 Plt Count 211 MPV 9.4 Immature Gran % (Auto) 0.4 Neut % (Auto) 67.3 Lymph % (Auto) 23.0 [place] % (Auto) 7.7 Eos % (Auto) 1.0 Baso % (Auto) 0.6 Lymph # (Auto) 1.9 [place] # (Auto) 0.6 Eos # (Auto) 0.1 Baso # (Auto) 0.1 Abs Immat Gran (auto) 0.03 Absolute Neuts (auto) 5.6 Absolute Nucleated RBC 0.000 Nucleated RBC % (auto) 0.0 Smear Tech's Comments Sodium 142 Potassium 3.8 Chloride 112 H Carbon Dioxide 22 Anion Gap 12 BUN 10 Creatinine 0.77 Estim Creat Clear Calc 95.1 Estimated GFR > 60 Random Glucose 90 Lactic Acid Lactic Acid F/U @ 2Hr Calcium 8.7 D Magnesium Total Bilirubin 0.6 Direct Bilirubin AST 27 ALT 20 Alkaline Phosphatase 62 Total Creatine Kinase 240 H Troponin I High Sens 498.2 H* D 326.7 H* B-Natriuretic Peptide Total Protein 5.9 L Albumin 3.6 Triglycerides 59 Cholesterol 142 LDL Cholesterol, Calc 95 HDL Cholesterol 36 L Beta HCG, Quant Hold Red Top See Note Urine Color Urine Appearance Urine pH Ur Specific [place] Urine Protein Urine Glucose (UA) Urine Ketones Urine Blood Urine Nitrite Ur Leukocyte Esterase Salicylates Urine Opiates Screen Ur Buprenorphine Scrn Ur Oxycodone Screen Urine Methadone Screen Urine Fentanyl Screen Acetaminophen Ur Barbiturates Screen Ur Phencyclidine Scrn Ur Amphetamines Screen U Benzodiazepines Scrn Urine Cocaine Screen U Marijuana (THC) Screen Ethyl Alcohol Influenza Type A (PCR) Influenza Type B (PCR) RSV RNA Qual (PCR) SARS-CoV-2 RNA (RT-PCR) ECG Interpretation: EKG with underlying sinus rhythm at 109/Min; left ventricular hypertrophy pattern; nonspecific QRS widening; normal [place] and corrected QT. in the repeat EKG, QRS duration seems to have improved. Assessment and Plan (1) Polysubstance abuse: Status: Acute (2) Cocaine abuse: Status: Acute (3) NSTEMI (non-ST elevated myocardial infarction): Status: Acute Plan High sensitivity troponin levels are 89, 298, 498 and 326. Cardiac BNP is normal at 16. Drug screen positive for opiates, buprenorphine, fentanyl, amphetamines, benzos, cocaine. Overall, substance abuse, seizures, possible respiratory arrest, elevated troponins. Suspect this is all from demand. Do not believe this is primary ACS. In this setting, no specific intervention from cardiac. We discussed about dangers from drugs including and she states that she does not want to stop and would like to continue to do so and is well aware of the risks. RN was also at the bedside during this conversation. If she is willing, can get an echocardiogram for cardiac function. 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 Procedures Date of Service Date of Service: 03/07/25
[2025-03-07] MEDS: Acetaminophen 325 MG TABLET 650 MG PO (14:26)
[2025-03-07] MEDS: LORazepam 0.5 MG TABLET PO ×2 (14:27→23:43)
[2025-03-07 15:30] VITALS: BP 123/67; PULSE 85; RESP 18; TEMP 36.6; O2SAT 98
[2025-03-07 19:26] VITALS: BP 135/66; PULSE 80; RESP 18; TEMP 37.1; O2SAT 100
[2025-03-07] MEDS: Sennosides 8.6 MG TABLET 17.2 MG PO (19:44)
[2025-03-07] MEDS: Melatonin 3 MG TABLET 6 MG PO (19:44)
[2025-03-07] MEDS: Metoprolol Tartrate 12.5 MG HALFTAB PO (19:45)
[2025-03-08] VITALS: BP 124/63; PULSE 98; RESP 16; TEMP 36.6; O2SAT 97
[2025-03-08 04:00] VITALS: BP 136/70; PULSE 95; RESP 14; TEMP 37.1; O2SAT 97
[2025-03-08 07:10] VITALS: BP 144/71; PULSE 88; RESP 16; TEMP 36.6; O2SAT 99
[2025-03-08] MEDS: Metoprolol Tartrate 12.5 MG HALFTAB PO (08:13)
[2025-03-08] MEDS: Aspirin Enteric Coated 81 MG TABLET.DR PO (08:13)
[2025-03-08] MEDS: Lactated Ringers 1,000 ML 100 ML IVCONT (08:13)
[2025-03-08] MEDS: 0.9 % Sodium Chloride Flush 3 ML SYRINGE IVFLUSH (08:13)
--- NOTE | 2025-03-08 08:52 | P.PNIM_ITS ---
Subjective Subjective Date of Service: 03/08/25 Interval History: no complaints Physical Exam 2 Vital Signs: Vital Signs: Last Vital Signs Temp 97.8 F 03/08/25 07:10 Pulse 88 03/08/25 07:10 Resp 16 03/08/25 07:10 BP 144/71 H 03/08/25 07:10 Pulse Ox 99 03/08/25 07:10 O2 Del Method Room Air 03/08/25 07:10 BMI result Body Mass Index 25.7 Const: General: comfortable and no acute distress O rientation/consciousness: patient oriented x3 HEENT: Other: Unremarkable Head: Yes normal to inspection Neck: Neck: Yes normal visual inspection Chest: Chest palpation & inspection: normal inspection of the chest Resp: Auscultation: clear to auscultation bilaterally Cardio: Palpation: normal PMI Heart sounds: S1 normal heart sound present, S2 normal heart sound present, no gallops, no murmurs and no rubs GI: Palpation (GI): Soft to palpation Back/Spine/Pelvis: Other: unremarkable Skin: General skin exam: no rashes or lesions noted Neuro: General: patient oriented x3 Extrem: General: Yes normal to inspection Psych: Mental Status: mental status grossly normal Objective Data Active Medications Acetaminophen (Acetaminophen 325 Mg Tablet) 650 mg PO Q6H PRN PRN Reason: Pain, Mild 1-3,fever,headache Last Admin: 03/07/25 14:26 Dose: 650 mg Documented By: JOHNNIE Aspirin (Aspirin Enteric Coated 81 Mg Tablet.Dr) 81 mg PO DAILY [facility] Last Admin: 03/08/25 08:13 Dose: 81 mg Documented By: JOHNNIE Calcium Carbonate (Calcium Carbonate 750 Mg Tab.Chew) 750 mg PO Q4H PRN PRN Reason: Heartburn Enoxaparin Sodium (Enoxaparin Sodium 40 Mg/0.4 Ml Syringe) 40 mg SUBCUT Q24H [facility] Last Admin: 03/08/25 08:14 Dose: Not Given Documented By: JOHNNIE Non-Admin Reason: Patient Refused Lactated Ringer's (Lr) 1,000 mls @ 100 mls/hr IVCONT .Q10H [facility] Last Admin: 03/08/25 08:13 Dose: 100 mls/hr Documented By: JOHNNIE Lorazepam (Lorazepam 0.5 Mg Tablet) 0.5 mg PO Q8H PRN PRN Reason: Anxiety Last Admin: 03/07/25 23:43 Dose: 0.5 mg Documented By: BRYAN Magnesium Hydroxide (Milk Of Magnesia 30 Ml Oral.Susp) 30 ml PO DAILY PRN PRN Reason: Constipation Melatonin (Melatonin 3 Mg Tablet) 6 mg PO BEDTIME PRN PRN Reason: Insomnia Last Admin: 03/07/25 19:44 Dose: 6 mg Documented By: BRYAN Metoprolol Tartrate (Metoprolol Tartrate 12.5 Mg Halftab) 12.5 mg PO BID [facility]; Protocol Last Admin: 03/08/25 08:13 Dose: 12.5 mg Documented By: JOHNNIE Senna (Sennosides 8.6 Mg Tablet) 17.2 mg PO BEDTIME [facility] Last Admin: 03/07/25 19:44 Dose: 17.2 mg Documented By: BRYAN Sodium Chloride (0.9 % Sodium Chloride Flush 3 Ml Syringe) 3 ml IVFLUSH QSARFT [facility] Last Admin: 03/08/25 08:13 Dose: 3 ml Documented By: JOHNNIE Labs 03/07/25 07:13 03/07/25 07:13 Microbiology Microbiology Results: Microbiology 03/06/25 20:17 Blood Culture - Preliminary Blood - Venous No growth after 24 hours. 03/06/25 17:48 Blood Culture - Preliminary Blood - Venous No growth after 24 hours. Assessment and Plan (1) Major depressive disorder, recurrent severe without psychotic features: Status: Acute Plan 45F PMH polysubstance dependence presented with AMS Acute toxic metabolic encephalopathy due to opiate overdose and possible seizure Now resolved follow up neuro Elevated troponin Likely due to cocaine, follow up echo (can be outpatient) cardio appreciated, not ACS Right elbow pain Traumatic hematoma, no signs of infection discontinue vancomycin DVT prophylaxis Lovenox Full Code reason for continued hospitalization: Neuro eval Quality Stroke Does the patient have a stroke diagnosis?: No VTE Prior VTE?: No VTE Risk Level:: Medical - moderate - high VTE Device Contraindication: Treatment Not Indicated VTE Drug Contraindication: N/A - Med Ordered
[2025-03-08 10:59] VITALS: PULSE 76; RESP 16; TEMP 36.3; O2SAT 99
[2025-03-08] MEDS: Acetaminophen 325 MG TABLET 650 MG PO (11:10)
[2025-03-08] MEDS: LORazepam 0.5 MG TABLET PO (11:10)
--- NOTE | 2025-03-08 13:20 | P.DS_ITS ---
DS: Providers Provider Date of Service: 03/08/25 Date of admission: 03/07/25 04:25 Date of discharge: 03/08/25 Primary care physician: Evert Feng MD Consults: 03/06/25 15:58 Addiction Medicine Provider Stat Consulting Provider: Addiction Covering Reason for consultation: overdose 03/06/25 16:27 ED CARE Team Crisis Consult Stat Comment: Reason for consultation: OD, reporting passive SI, ?intentional overdose 03/07/25 04:25 Consult to Cardiology Routine Consulting Provider: [facility] Reason for consultation: Elevated troponin 03/07/25 04:30 Consult to Neurology Routine Consulting Provider: [facility] Reason for consultation: seizure 03/07/25 11:36 Inpt - Recovery Team Routine Comment: Reason for consultation: assessment (Ioanna aware) 03/07/25 16:28 Consult to Wound Care Routine Reason for consultation: Right elbow Has provider been notified: Yes DS: Diagnosis Discharge Diagnosis (1) Major depressive disorder, recurrent severe without psychotic features: Status: Acute DS: Summary Hospital Course Hospital Course: from initial hpi: 45-year-old female with a past medical history of polysubstance abuse, chronic back pain presented to the hospital with a chief complaint of opiate overdose. Patient responsive. Patient at the time of my interview is alert and awake. Mentioned that she took heroin/fentanyl and cocaine today. Subsequently she fainted before that she called the police. Next per report police care of her a dose of Narcan. Called ambulance. Patient has started to seize. EMS team on arrival noted that patient is seizing give her a dose of Versed. Subsequently brought her to the hospital for further evaluation. Patient mentioned that today she used drugs IV. Usually she does not. Denies any chest pain or palpitations. Denies any shortness of breath. Reports mild pain in her elbow where she injected the drugs. Denies any GI or symptoms. Review of all other systems is negative except mentioned above ER course: Per ER team, patient on presentation was drowsy; given a dose of Narcan. Patient followed by noted to be sinus tachy. CT chest showed no evidence of PE CT head showed no acute intracranial process. Patient did not have any further episodes of seizures. CPK elevated to 155--240. Troponin elevated from 89-498 followed by 370. EKG was nonischemic. Cardiology Dr. Torres was notified, did not suggest heparin drip. hospital course: Patient was admitted for acute toxic metabolic encephalopathy due to opiate overdose and possible seizure. Mental status is back to baseline. Neurology has recommended outpatient EEG and no driving until cleared. For elevated troponin this was likely due to cocaine was seen by Cardiology who felt this was unlikely to be acute coronary syndrome and recommended outpatient echocardiogram. For right elbow pain due to traumatic hematoma no signs of cellulitis, vancomycin was discontinued. This should slowly resolve over weeks. Patient is medically stable, denies any suicide ideation, will be discharged home. Time Attestation Discharge Coordination Time (in mins): 33 Quality: Safe Use of Opioids Does Pt have an Active Cancer Diagnosis on the Problem List?: No Quality: Stroke Does the patient have a stroke diagnosis?: No Physical Exam Vital Signs: Vital Signs: Last Vital Signs Temp 97.4 F 03/08/25 10:59 Pulse 76 03/08/25 10:59 Resp 16 03/08/25 10:59 BP 144/71 H 03/08/25 07:10 Pulse Ox 99 03/08/25 10:59 O2 Del Method Room Air 03/08/25 10:59 BMI result Body Mass Index 25.7 Const: General: comfortable and no acute distress Orientation/co nsciousness: patient oriented x3 HEENT: Other: Unremarkable Head: Yes normal to inspection Neck: Neck: Yes normal visual inspection Chest: Chest palpation & inspection: normal inspection of the chest Resp: Auscultation: clear to auscultation bilaterally Cardio: Palpation: normal PMI Heart sounds: S1 normal heart sound present, S2 normal heart sound present, no gallops, no murmurs and no rubs GI: Palpation (GI): Soft to palpation Back/Spine/Pelvis: Other: unremarkable Skin: General skin exam: no rashes or lesions noted Neuro: General: patient oriented x3 Extrem: General: Yes normal to inspection Psych: Mental Status: mental status grossly normal DS: Data Data Completed and Pending Labs on day of discharge: Preliminary micro results at discharge 03/06/25 20:17 Blood Culture - Preliminary Blood - Venous No growth after 24 hours. 03/06/25 17:48 Blood Culture - Preliminary Blood - Venous No growth after 24 hours. Discharge Plan Discharge Anticipated Discharge Date/Time: 03/08/25 13:17 Patient Disposition: Home, Self-Care Discharge Diagnosis: drug overdose, possible seizure, elevated trop Referrals: Evert Feng MD [Primary Care Provider] - 1 Week Amaya Jarrett MD [Physician] - 1 Week Discharge Orders: Discharge Order (Routine); Ordered 03/08/25 Ordered By: Misael Keen Diet: Advance to usual diet Activity on Discharge: no driving Stand Alone Forms: Patient Portal Discharge page Print Language: Uzbek Other Ambulatory Orders: EEG electroencephalogram (Routine) Timeframe: 1 Week Facility: [facility] - Location: Radiology Ordered By: Misael Keen CA echo transthoracic complete (Routine) Timeframe: 1 Week Facility: [facility] - Location: Cardiology Ordered By: Misael Keen Care Plan Goals: Recovery Health Concerns: Drug use, elevated troponin, possible seizure Plan of Treatment: No driving until cleared by Neurology, follow up echocardiogram and EEG, did not use drugs Assessment: See above
== END 2025-03-08 16:18 | disposition home or self-care (01) | DRG 812 ==
LOC: HO.ED 03-07 01:42 → HO.EDOVER 03-07 04:31 → HO.IMC 03-07 05:03
PROVIDERS: Physician Assistant Medical; Admitting Provider Hospitalist; Emergency Provider Emergency Medicine Emergency Medical Services; PCP Internal Medicine; Visit Provider Internal Medicine
DX: T40.601A Poisoning by unspecified narcotics, accidental (unintentional), initial encounter (principal); G92.8 Other toxic encephalopathy; F33.2 Major depressive disorder, recurrent severe without psychotic features; S50.01XA Contusion of right elbow, initial encounter; X58.XXXA Exposure to other specified factors, initial encounter; R56.9 Unspecified convulsions; F14.10 Cocaine abuse, uncomplicated; F19.10 Other psychoactive substance abuse, uncomplicated; Z79.899 Other long term (current) drug therapy
CPT/HCPCS: 0241U; 36415; 70450; 71275; 73200; 80048; 80053; 80061; 80076; 80143; 80179; 80307; 81003; 82550; 83605; 83735; 83880; 84484; 84702; 85025; 87040; 93005; 99285; J2250; J2310; J3371; J7120; Q9967; S9485

== ENCOUNTER → 2025-03-06 15:50 | Outpatient (BNV) | payer SELFPAY | PROVIDERS: Admitting Provider Hospitalist; Emergency Provider Emergency Medicine Emergency Medical Services; PCP Internal Medicine; Visit Provider Internal Medicine | DX: R00.0 Tachycardia, unspecified (principal) | CPT/HCPCS: 93010 ==

== ENCOUNTER → 2025-03-06 23:09 | Outpatient (BNV) | payer SELFPAY | PROVIDERS: Emergency Provider Emergency Medicine Emergency Medical Services; PCP Internal Medicine; Visit Provider Radiology Diagnostic Radiology | DX: R56.9 Unspecified convulsions (principal); R79.89 Other specified abnormal findings of blood chemistry | CPT/HCPCS: 70450; 71275 ==

== ENCOUNTER 2025-03-07 04:25 | Outpatient (BNV) | payer SELFPAY | END 2025-03-07 04:35 | PROVIDERS: Admitting Provider Hospitalist; Emergency Provider Emergency Medicine Emergency Medical Services; PCP Internal Medicine; Visit Provider Radiology Diagnostic Radiology | DX: L76.22 Postprocedural hemorrhage of skin and subcutaneous tissue following other procedure (principal) | CPT/HCPCS: 73200 ==

== ENCOUNTER → 2025-03-07 04:25 | Outpatient (BNV) | payer SELFPAY | PROVIDERS: Admitting Provider Hospitalist; Emergency Provider Emergency Medicine Emergency Medical Services; PCP Internal Medicine; Visit Provider Internal Medicine | DX: F33.2 Major depressive disorder, recurrent severe without psychotic features (principal) | CPT/HCPCS: 99222; 99239; 99499 ==

== ENCOUNTER → 2025-03-07 04:25 | Outpatient (BNV) | payer SELFPAY | PROVIDERS: Admitting Provider Hospitalist; Emergency Provider Emergency Medicine Emergency Medical Services; PCP Internal Medicine; Visit Provider Internal Medicine | DX: F19.10 Other psychoactive substance abuse, uncomplicated (principal); F14.10 Cocaine abuse, uncomplicated; I21.4 Non-ST elevation (NSTEMI) myocardial infarction | CPT/HCPCS: 99223 ==

== ENCOUNTER → 2025-03-07 04:25 | Outpatient (BNV) | payer SELFPAY | PROVIDERS: Admitting Provider Hospitalist; Emergency Provider Emergency Medicine Emergency Medical Services; PCP Internal Medicine; Visit Provider Nurse Practitioner Psychiatric/Mental Health | DX: F11.20 Opioid dependence, uncomplicated (principal) | CPT/HCPCS: 99222 ==